=== PATIENT | male | born 1950 | race Caucasian/White ===

== ENCOUNTER 2017-03-23 17:44 | Observation (INO) ==
[2017-03-23] MEDS ORDERED: Acetaminophen 325 MG TABLET PO PRN (21:47)
[2017-03-23] MEDS ORDERED: Ondansetron 4 MG/2 ML VIAL IVP PRN (21:47)
[2017-03-23] MEDS ORDERED: Naloxone 0.4 MG/ML INJ IVP PRN (21:47)
[2017-03-23] MEDS ORDERED: *HR* Dextrose 50 % in Water (Syg) 50 ML SYRINGE IVP PRN (21:52)
[2017-03-23] MEDS ORDERED: D5% in Water 1,000 ML IVC PRN (21:52)
[2017-03-23] MEDS ORDERED: Dextrose Gel 15 GM PO PRN ×2 (21:52)
[2017-03-23] MEDS ORDERED: *HR* Warfarin 10 MG TABLET PO ONE (21:54)
--- NOTE | 2017-03-23 22:02 | Internal Med History&Physical ---
Date of Encounter: 03/23/17 Time of Encounter: 21:00 Assessment and Plan (1) Cerebrovascular accident Current visit: No Status: Acute History of CVA with residual right-sided weakness. New symptoms of right arm numbness with slurred speech. Happened 2 days ago. Improved now. - New infarct versus TIA - Keep patient nothing by mouth, IV fluid, speech therapy for swallow evaluation. - Place patient on continuous cardiac monitoring. - Check echo and duplex carotid. - MRI in a.m., neurology consult if MRI positive for acute infarct. - Patient is on Coumadin and atorvastatin now. Qualifiers: CVA mechanism: unspecified Qualified Code(s): I63.9 - Cerebral infarction, unspecified (2) Diabetes Current visit: Yes Status: Acute keep this patient on basal and sliding scale insulin Qualifiers: Diabetes mellitus type: type 2 Diabetes mellitus complication status: without complication Diabetes mellitus prison insulin use: with block engraver use Qualified Code(s): E11.9 - Type 2 diabetes mellitus without complications ; Z79.4 - manager plumbing (current) use of insulin (3) Hypertension Current visit: Yes Status: Acute BP is not high. Hold the by mouth medication because of nothing by mouth. Close monitor blood pressure. Qualifiers: Hypertension type: essential hypertension Qualified Code(s): I10 - Essential (primary) hypertension (4) A-fib Current visit: Yes Status: Acute On detoxing and the Cardizem for rate control. Heart rate is well controlled now. On Coumadin for anticoagulations, INR is therapeutic. Qualifiers: Atrial fibrillation type: chronic Qualified Code(s): I48.2 - Chronic atrial fibrillation (5) DVT prophylaxis Current visit: Yes Status: Acute Patient is on Coumadin Internal Medicine - H&P: HPI Chief complaint: Right arm numberness and slurred speech Admitted From: Home Plans for Post Hospital Care: Home History of present illness: Mr. Goodwin is a 67 year old male with history of A. fib, diabetes, hypertension , history of CVA presented to [place] the emergency room for right-sided arm numbness and slurred speech since Sunday (2 days ago). Patient denies headache, dizziness, shortness of breath, or chest pain. He said the numbness of arm and slurred speech has improved over 2 days. He had a CAT scan in [place] which shows an old infarct. Patient was admitted for further management. I discussed with patient regarding CODE STATUS. He is full code. Past Med Surg Social Fam HX - Past Medical History Medical history: atrial fibrillation, CVA, diabetes, hypertension Psychiatric history: no psych history - Social History Smoking Status: Never smoker Smokeless Tobacco Status: No Alcohol use: occasionally Drug use: none - Family History Mother Hx Family Cancer: Yes Internal Medicine - H&P: Meds Acetaminophen [Tylenol] 650 mg PO Q6HR PRN 08/18/16 [History] Atorvastatin Calcium [Lipitor] 40 mg PO DAILY 08/18/16 [History] Benazepril HCl 40 mg PO DAILY 08/18/16 [History] Digoxin [Lanoxin] 250 mcg PO DAILY 08/18/16 [History] Diltiazem HCl [Cardizem LA] 360 mg PO DAILY 08/18/16 [History] DiphenhydraMINE [Benadryl] 50 mg PO Q6HR 08/18/16 [History] GlipiZIDE [Glipizide] 10 mg PO DAILY 08/18/16 [History] Metformin HCl [Glucophage] 1,000 mg PO BID 08/18/16 [History] Tamsulosin [Flomax] 0.4 mg PO DAILY 08/18/16 [History] Warfarin [Coumadin] 10 mg PO 1800 08/18/16 [History] Insulin DETEMIR [Levemir] 90 unit SQ HS 03/23/17 [History] Allergies cigarette smoke Adverse Reaction (Verified 03/23/17 21:18) Difficulty Breathing All Systems PM: A 10-system review of systems was performed and is negative for pertinent findings except as documented above in the HPI. - Constitutional Vitals: Temp Pulse Resp BP Pulse Ox 97.7 F 81 16 154/87 94 03/23/17 20:54 03/23/17 20:54 03/23/17 20:54 03/23/17 20:54 03/23/17 20:54 General appearance: Present: A&O X 3, no acute distress, answers questions appropriately - Head Head exam: Present: atraumatic, normocephalic - Eye Eye exam: Present: PERRL, conjuntiva pink, sclera anicteric Pupils: Present: PERRL - Neck Neck exam general surgery: Present: supple, trachea midline. Absent: lymphadenopathy - Respiratory Respiratory exam: Present: CTAB. Absent: accessory muscle use, rales, rhonchi, wheezes - Cardiovascular Cardiovascular exam: Present: irregular rhythm, +S1, +S2. Absent: diastolic murmur, gallop, rubs, systolic murmur - GI/Abdominal GI/Abdominal exam: Present: normal bowel sounds, soft, no peritoneal signs. Absent: distended, tenderness - Extremities Exam Extremities exam: Present: warm, radial pulses palpable and symetrical. Absent : calf tenderness, cyanotic, pedal edema - Neurological Exam Neurological exam: Present: CN II-XII intact, motor sensory deficit (Right hand motor 5-), oriented X3, no focal deficits. Absent: pronater drift, facial droop , speech deficit - Skin Skin exam: Present: dry, intact
[2017-03-23] MEDS: Diltiazem CD (24hr) 180 MG CAPSULE PO SCH (23:00)
[2017-03-23] MEDS: Insulin DETEMIR 100 UNIT/ML X5UNITS SQ SCH (23:00)
[2017-03-23] MEDS: 0.9 % Sodium Chloride 1,000 ML IVC SCH (23:00)
[2017-03-24] MEDS: Insulin LISPRO 300 UNITS/3 ML VIAL SQ SCH ×5 (00:45→23:37)
[2017-03-24 06:08] LABS: Basophils % 0.5 %; Eosinophils # 0.2 K/mcL (0.0-0.6); Eosinophils % 2.9 %; Hematocrit 45.1 % (37.5-50.1); Hemoglobin 14.4 g/dL (12.9-16.9); Immature Granulocytes % 1.1 % (0-4); Lymphocytes # 2.2 K/mcL (0.6-4.6); Lymphocytes % 26.6 %; Mean Corpuscular HGB Conc 31.9 g/dL (31.6-35.5); Mean Corpuscular Hemoglobin 28.5 pg (28.0-33.3); Mean Corpuscular Volume 89.1 fL (83.0-100.0); Mean Platelet Volume 11.8 fL (9.4-12.4); Monocytes # 0.7 K/mcL (0.0-1.3); Monocytes % 8.5 %; Platelet Count 220 K/mcL (140-400); Red Blood Count 5.06 M/mcL (4.19-5.50); Red Cell Distribution Width 14.3 % (11.5-14.5); Segmented Neutrophils % 60.4 %
[2017-03-24 06:11] LABS: INR 2.6
[2017-03-24 06:28] LABS: BUN/Creatinine Ratio 15 (6-26); Blood Urea Nitrogen 14 mg/dL (8-26); Calcium 9.4 mg/dL (8.6-10.8); Carbon Dioxide 27 mEq/L (19-29); Chloride 104 mEq/L (98-109); Chol/HDL Ratio 5.9 (0-4.9); Cholesterol 182 mg/dL (< 200); Glucose 176 mg/dL (70-99); HDL Cholesterol 31 mg/dL (40-59); LDL Cholesterol,Calculated 87 mg/dL (0-99); Osmolality,Calculated 295 (280-300); Sodium 140 mEq/L (136-145); Triglycerides 322 mg/dL (< 150); eGFR For African Americans > 60 (> 60); eGFR For Non-African Americans > 60 (> 60)
[2017-03-24] MEDS: *HR* Digoxin 0.25 MG TABLET PO SCH (08:29)
[2017-03-24] MEDS: 0.9 % Sodium Chloride 1,000 ML IVC SCH ×2 (08:30→22:19)
[2017-03-24] MEDS ORDERED: *HR* Metoprolol 5 MG/5 ML VIAL IVP PRN (14:10)
[2017-03-24] MEDS: Lisinopril 20 MG TABLET PO SCH (15:34)
--- NOTE | 2017-03-24 17:17 | Internal Med Progress Note ---
Date of Encounter: 03/24/17 Time of Encounter: 15:30 - Assessment and plan (1) Cerebrovascular accident Current Visit: No Status: Ruled-out Assessment and plan: Acute CVA ruled out with a brain MRI was negative for acute processes and revealed his old CVA. Stroke education provided and importance of controlling glucoses and blood pressures covered with the patient. Patient hypertensive at this time, a dressing with by mouth medications as he is refusing IV. If ineffective, will insist upon an IV. Echocardiogram still pending. Carotid ultrasound with right sided nonstenotic plaque and left-sided moderate plaque. Follow-up outpatient. OT and speech therapy are recommended for outpatient therapy. He has no physical therapy needs. He has mild residual right-sided weakness from his prior CVA. Patient is quite verbose and at times has expressive aphasia but is able to find the correct word when given time and his speech is intelligible. We will observe overnight and gain better control over his blood pressure and likely discharge tomorrow pending clinical outcomes. ITS Impressions Brain MRI 03/24/17 21:55 IMPRESSION: 1. No acute infarct or acute intracranial process identified. 2. Remote posterior left MCA infarct. 3. Mild chronic small vessel ischemic changes. D/ / 03/24/2017 10:58:57 Alonso Colby MD / david Interpreting Provider: Alonso Colby MD 03/24/17 12:21 - Vascular Preliminary by Radha Cunningham [facility] Num: [id number] : 1950 Patient Age: 67 CAROTID DOPPLER PRELIMINARY REPORT NONSTENOTIC PLAQUE ONLY RIGHT CAROTID ARTERY 60-79% STENOSIS LEFT PROXIMAL ICA Qualifiers: CVA mechanism: unspecified Qualified Code(s): I63.9 - Cerebral infarction, unspecified (2) Diabetes Current Visit: Yes Status: Chronic Assessment and plan: Uncontrolled with a recent A1c of 9.3%. Continue sliding scale and education while admitted. Patient readily admits that his blood pressure and his glucoses "skyrocket" every time he eats fast food. Qualifiers: Diabetes mellitus type: type 2 Diabetes mellitus complication status: without complication Diabetes mellitus detention insulin use: with keno terminal operator use Qualified Code(s): E11.9 - Type 2 diabetes mellitus without complications ; Z79.4 - keno terminal operator (current) use of insulin (3) Hypertension Current Visit: Yes Status: Chronic Assessment and plan: Uncontrolled. Now that we have ruled out an acute CVA, his blood pressure has been brought down to 160s over 80s. YVROSE inhibitor from home continued with Lopressor IV as needed. Qualifiers: Hypertension type: essential hypertension Qualified Code(s): I10 - Essential (primary) hypertension (4) A-fib Current Visit: Yes Status: Chronic Assessment and plan: Rate controlled and therapeutic on Coumadin. INR 2.6 today. Qualifiers: Atrial fibrillation type: chronic Qualified Code(s): I48.2 - Chronic atrial fibrillation (5) DVT prophylaxis Current Visit: Yes Status: Acute Assessment and plan: Therapeutic on Coumadin - Subjective Interval history: Patient seen and examined. On examination, patient sitting upright on his couch. Patient alert and oriented 3 and denies pain at this time. He states his right upper arm is no longer numb. He states he feels better now that he has been able to eat. - Constitutional Vitals: Temp Pulse Resp BP Pulse Ox 98.2 F 79 16 169/84 93 03/24/17 15:28 03/24/17 15:28 03/24/17 15:28 03/24/17 15:28 03/24/17 15:28 General appearance: Present: A&O X 3, pleasant, no acute distress, answers questions appropriately - Head Head exam: Present: atraumatic, normocephalic - Eye Eye exam: Present: PERRL, conjuntiva pink, sclera anicteric Pupils: Present: PERRL - Neck Neck exam general surgery: Present: supple, trachea midline. Absent: lymphadenopathy - Respiratory Respiratory exam: Present: CTAB. Absent: accessory muscle use, rales, respiratory distress, rhonchi, wheezes - Cardiovascular Cardiovascular exam: Present: RRR, +S1, +S2. Absent: diastolic murmur, gallop, rubs, systolic murmur - GI/Abdominal GI/Abdominal exam: Present: normal bowel sounds, soft, no peritoneal signs. Absent: distended, tenderness - Extremities Exam Extremities exam: Present: warm, radial pulses palpable and symetrical. Absent : calf tenderness, cyanotic, pedal edema - Neurological Exam Neurological exam: Present: alert, CN II-XII intact, oriented X3, no focal deficits, strengths equal and symetr throughout, speech deficit (Chronic). Absent: pronater drift, facial droop - Expanded Neurological Exam Patient oriented to: Present: person, place, time Speech: Present: expressive aphasia (At times), fluid speech Neuro motor strength exam: LUE: 5, RUE: 5, LLE: 5, RLE: 5 Coma Scale Eye Opening: Spontaneous Coma Scale Motor Response: Obeys Commands Coma Scale Verbal Response: Oriented Coma Scale Total: 15 - Skin Skin exam: Present: dry, intact, normal color, warm Internal Medicine: Result - Labs CBC & Chem 7: 03/24/17 05:32 03/24/17 05:32 Labs: Short CBC 03/24/17 Range/Units 05:32 WBC 8.2 (4.3-11.1) K/mcL Hgb 14.4 (12.9-16.9) g/dL Hct 45.1 (37.5-50.1) % Plt Count 220 (140-400) K/mcL Neutrophils # 5.0 (1.6-8.9) K/mcL BMP 03/24/17 05:32 Sodium 140 Potassium 4.0 Chloride 104 Carbon Dioxide 27 BUN 14 Creatinine 0.93 Glucose 176 H Calcium 9.4 - ABG Interpretation ABG results: PT/INR, D-dimer PT 29.0 Seconds (9.4-12.1) H 03/24/17 05:32 - Impressions Impressions Brain MRI 03/24/17 21:55 IMPRESSION: 1. No acute infarct or acute intracranial process identified. 2. Remote posterior left MCA infarct. 3. Mild chronic small vessel ischemic changes. D/ / 03/24/2017 10:58:57 Alonso Colby MD / david Interpreting Provider: Alonso Colby MD Consult Discharge Plan - Plan Referrals: Sonia Sloan MD [Primary Care Provider] -
--- NOTE | 2017-03-24 17:43 | ECHO - Doppler Report ---
Echocardiogram Name: Aryan Goodwin Date of Study: 03/24/2017 Date: 1950 Ht: 64.0 in Medical Record#: [id number] Age: 67 Wt: 273.0 lb Gender: Male BSA: 2.23 Order #: [id number] Location: [facility] Room #: [id number] Reading Physician: Marybel Nguyen DO Well Puller Head: Brit Marmolejo RDCS Ordering Physician: Jack Benedict MD Primary Physician: None Indications: Cerebrovascular Accident Impressions: LVEF 60-65%. Normal left ventricular size and systolic function. Mild concentric hypertrophy of the left ventricle. Indeterminate left ventricular diastolic function Normal right ventricular size and function. Mild mitral regurgitation. Mild pulmonic regurgitation. No pulmonary hypertension. Saline bubble study could not be performed. Patient declined IV. Left Ventricular Wall Motion: Rest Echo Findings All wall segments showed normal motion. Findings: Study Quality * Technically sub-optimal due to body habitus. ECG Findings * Atrial fibrillation. Aorta * Not well visualized. Aortic Valve * No aortic regurgitation. * Trileaflet aortic valve. * Mildly calcified aortic valve leaflets. * No aortic stenosis. Mitral Valve * Normal mitral valve structure. * No mitral stenosis. * Mild mitral annular calcification * Mild mitral regurgitation. Tricuspid Valve * Tricuspid valve not well visualized. * Trace tricuspid regurgitation. Pulmonic Valve * Pulmonic valve is not well visualized. * No pulmonic stenosis. * Mild pulmonic regurgitation. Pulmonary Artery * Pulmonary artery not well visualized. Left Ventricle * Mild concentric left ventricular hypertrophy. * Basal septal hypertrophy. * Indeterminate diastolic function. * LVEF 60-65%. Right Atrium * Normal right atrial size. Left Atrium * Severely dilated left atrium. Interatrial Septum * No evidence of PFO by color Doppler. Right Ventricle * Normal right ventricular structure and function. Pericardium * There is no pericardial effusion present. IVC * The IVC is not well evaluated. History Hypertension Diabetes Hypercholesteremia Family History of CAD Measurements: BP: 152/ 69 2D Normal Values RVIDd: 3.60 cm <2.7 cm IVSd: 1.60 cm 0.6 - 1.0 cm LVIDd: 4.60 cm 3.7 - 5.6 cm LVPWd: 1.30 cm 0.6 - 1.1 cm LVIDs: 2.20 cm 1.5 - 3.6 cm AO: 3.20 cm < 4.0 cm LA: 4.80 cm 2.0 - 4.0cm %FS: 52.20 cm >25 % LVOT Diam: 2.10 cm LA volume: 91 Mitral Valve Peak E:1.53 m/sec Peak A:.32 m/sec E/A Ratio:4.8 Peak E' Lat Gerson:12.9 cm/s Peak E' Med Gerson:10.4 cm/s E/E' Lat Ratio:11.9 E/E' Med Ratio:14.7 Tricuspid Valve TV Regurg Peak Grad: 15.00mmHg TV Regurg Peak Gerson: 1.91m/sec Updated by Marybel Nguyen on 03/24/2017 5:35:45 PM electronically signed on 03/24/2017 5:37:00 PM with status of Final Wall Motion Sanchez: 1=Normal, 2=Hypokinesis, 3=Akinesis, 4=Dyskinesis, 5=Aneurysmal, 6=Hyperkinetic, X=Not Visualized (Blank)=Missing
[2017-03-24] MEDS ORDERED: *HR* Warfarin 10 MG TABLET PO ONE (18:00)
[2017-03-24] MEDS ORDERED: Warfarin perPT PO PRN (18:00)
[2017-03-24] MEDS: Diltiazem CD (24hr) 180 MG CAPSULE PO SCH (21:08)
[2017-03-24] MEDS: Insulin DETEMIR 100 UNIT/ML X5UNITS SQ SCH (21:09)
[2017-03-25 05:00] LABS: INR 3.8; Prothrombin Time 42.9 Seconds (9.4-12.1)
[2017-03-25] MEDS: Insulin LISPRO 300 UNITS/3 ML VIAL SQ SCH ×2 (05:52→12:29)
[2017-03-25] MEDS: Lisinopril 20 MG TABLET PO SCH (08:24)
[2017-03-25] MEDS: *HR* Digoxin 0.25 MG TABLET PO SCH (08:24)
[2017-03-25] MEDS: 0.9 % Sodium Chloride 1,000 ML IVC SCH (08:24)
[2017-03-25] MEDS ORDERED: amLODIPine 5 MG TABLET PO SCH (09:00)
--- NOTE | 2017-03-25 12:36 | Carotid Imaging Report ---
Carotid Duplex Patient Name:Aryan Goodwin Order Number:[id number] Procedure Date:03/24/2017 Date:8Age:67 yrs Gender:Male Rt.BP:152 / 69 mmHgHeart Rate: Location:[facility] Room #: [id number] Lbd Teacher:Annemarie Cunningham RVT Referring MD:Jack Benedict MD controller mechanic:None Reading MD:Wellington Ledesma MD Risk Factors Yes/No Hypertension Yes Diabetes Yes Anticoagulants Yes Hx of CVA Impressions: Findings: Left proximal ICA has a severe, 60-79% stenosis. Recommendations: Risk Factor Modification, Medical Therapy, and Follow up exam 12 months. Findings Carotid Duplex: Right: There is nonstenotic plaque in the right proximal common carotid artery. There is smooth heterogeneous plaque. There is nonstenotic plaque in the right mid common carotid artery. There is smooth heterogeneous plaque. There is nonstenotic plaque in the right distal common carotid artery. There is smooth heterogeneous plaque. There is nonstenotic plaque in the right bifurcation. There is smooth heterogeneous plaque. There is nonstenotic plaque in the right proximal internal carotid artery. There is smooth heterogeneous plaque. There is nonstenotic plaque in the right eca. There is smooth heterogeneous plaque. Left: There is nonstenotic plaque in the left mid common carotid artery. There is smooth heterogeneous plaque. There is nonstenotic plaque in the left distal common carotid artery. There is smooth heterogeneous plaque. There is nonstenotic plaque in the left bifurcation. There is smooth heterogeneous plaque. There is 60-79% stenosis in the left proximal internal carotid artery. There is smooth heterogeneous plaque. Carotid Results Right PSV EDV Assessment Proximal CCA 80 11 Non Stenotic Plaque Mid CCA 71 7 Non Stenotic Plaque Distal CCA 56 8 Non Stenotic Plaque Bifurcation 33 5 Non Stenotic Plaque Proximal ICA 52 11 Non Stenotic Plaque Mid ICA 86 18 Normal Distal ICA 83 20 Normal ECA 191 18 Non Stenotic Plaque Vertebral Artery 66 15 Antegrade Flow Left PSV EDV Assessment Proximal CCA 78 9 Normal Mid CCA 108 9 Non Stenotic Plaque Distal CCA 80 10 Non Stenotic Plaque Bifurcation 38 5 Non Stenotic Plaque Proximal ICA 253 39 60-79% stenosis Mid ICA 77 20 Normal Distal ICA 101 25 Normal ECA 174 8 Normal Vertebral Artery 41 7 Antegrade Flow Ratio's Right ICA/CCA Ratio: 1.21 ICA/CCA Values: 86/71 Left ICA/CCA Ratio: 2.34 ICA/CCA Values: 253/108 Updated by Wellington Ledesma MD on 03/25/2017 12:29:17 PM electronically signed on 03/25/2017 12:29:28 PM with status of Final
[2017-03-25] MEDS ORDERED: amLODIPine 5 MG TABLET PO ONE (13:23)
[2017-03-25 14:10] VITALS: BP 144/55
--- NOTE | 2017-03-25 14:16 | Discharge Summary ---
Date of Encounter: 03/25/17 Time of Encounter: 09:30 - Discharge Diagnosis (1) Cerebrovascular accident Priority: Primary Status: Ruled-out Comments: Acute CVA ruled out with a brain MRI was negative for acute processes and revealed his old CVA. Qualifiers: CVA mechanism: unspecified Qualified Code(s): I63.9 - Cerebral infarction, unspecified (2) TIA (transient ischemic attack) Priority: Primary Status: Suspected (3) Diabetes Priority: Secondary Status: Chronic Comments: Uncontrolled with a recent A1c of 9.3%. Attempted education while admitted. Patient readily admits that his blood pressure and his glucoses "skyrocket" every time he eats fast food. Follow-up outpatient. Qualifiers: Diabetes mellitus type: type 2 Diabetes mellitus complication status: without complication Diabetes mellitus senior care insulin use: with moth exterminator use Qualified Code(s): E11.9 - Type 2 diabetes mellitus without complications ; Z79.4 - manager intermediate (current) use of insulin (4) Hypertension Priority: Secondary Status: Chronic Comments: Uncontrolled so amlodipine was added to his regimen. He was normotensive at time of discharge. Recommend daily blood pressure checks at home and keep a log for primary care provider. Qualifiers: Hypertension type: essential hypertension Qualified Code(s): I10 - Essential (primary) hypertension (5) A-fib Priority: Secondary Status: Chronic Comments: Rate controlled. INR slightly supratherapeutic on day of discharge, recommended close outpatient follow-up Qualifiers: Atrial fibrillation type: chronic Qualified Code(s): I48.2 - Chronic atrial fibrillation (6) DVT prophylaxis Priority: Primary Status: Acute Comments: Slightly supratherapeutic on day of discharge, no signs of active bleeding, follow-up closely outpatient. - Discharge Medications Prescriptions: Amlodipine [Norvasc] 5 mg PO DAILY #30 tablet Home Medications: Acetaminophen [Tylenol] 650 mg PO Q6HR PRN 08/18/16 [History] Atorvastatin Calcium [Lipitor] 40 mg PO DAILY 08/18/16 [History] Benazepril HCl 40 mg PO DAILY 08/18/16 [History] Digoxin [Lanoxin] 250 mcg PO DAILY 08/18/16 [History] Diltiazem HCl [Cardizem LA] 360 mg PO DAILY 08/18/16 [History] DiphenhydraMINE [Benadryl] 50 mg PO Q6HR 08/18/16 [History] GlipiZIDE [Glipizide] 10 mg PO DAILY 08/18/16 [History] Metformin HCl [Glucophage] 1,000 mg PO BID 08/18/16 [History] Tamsulosin [Flomax] 0.4 mg PO DAILY 08/18/16 [History] Warfarin [Coumadin] 10 mg PO 1800 08/18/16 [History] Insulin DETEMIR [Levemir] 90 unit SQ HS 03/23/17 [History] Amlodipine [Norvasc] 5 mg PO DAILY #30 tablet 03/25/17 [Rx] Allergies/Adverse Reactions: Allergies cigarette smoke Adverse Reaction (Verified 03/23/17 21:18) Difficulty Breathing Procedures/tests Complete & Pending: Procedures Performed prior 72 hours Category Date Time Status MR head/brain wo con [MR] Routine MRI 03/24/17 21:55 Completed EV carotid duplex imaging BI Routine Y 03/23/17 21:56 Completed EV echocardiogram Routine Y 03/24/17 12:00 Completed Date of admission: 03/23/17 20:23 Primary care physician: Sonia Sloan, Consults: 03/23/17 21:50 Consult to Occupational Therapy [CONS] Routine Comment: Evaluate, develop and implement POC Reason for Consult: Stroke/TIA Consult to Physical Therapy [CONS] Routine Comment: Evaluate, develop and implement POC Reason for Consult: Stroke/TIA 03/23/17 21:51 Consult to Speech Therapy [CONS] Routine Comment: Evaluate, develop and implement POC Reason for Consult: Swallow evaluation Call Completed: No 03/23/17 22:43 Consult to Application Support Administrator [CONS] Routine Reason for SW Consult: Pt talks of having o2 concentrator at home, trying to "find used cpap or bipap" as well. Bought these things on his own. Discharging clinician: Jenni Guallpa Anticipated date of discharge: 03/25/17 - Patient Status Disposition: Home Health Service Condition: Fair Functional capacity at discharge: independent ambulation Overall status at discharge: patient is back to baseline - Discharge Instructions Follow Up With: Sonia Sloan MD [Primary Care Provider] - Additional Instructions: Follow-up with primary care provider within one to 2 weeks, check blood pressure daily - Diet and Activity Activity: increase activity as tolerated Diet: diabetic diet, low fat, low cholesterol, low salt diet Hospital course: Mr. Goodwin is a 67 year old male with past medical history of atrial fibrillation on Coumadin, diabetes, hypertension, prior CVA. He presented to [place] [facility] emergency department chief complaint of right sided arm numbness and slurred speech that started 2 days prior to presentation. Patient denied headache, dizziness, shortness of breath, or chest pain. He stated that the numbness of his arm and his slurred speech has improved over the 2 days prior to presentation. Workup in the emergency department unremarkable other than for hypertension. Patient was admitted to the hospitalist service for further evaluation and management. Brain MRI negative for acute processes and again reviewed his prior CVA to left MCA. Patient was educated several times during this admission regarding importance of controlling his glucoses which are uncontrolled with a recent A1c of 9.3%, as well as his blood pressures. Patient readily admits to dietary indiscretions causing his hypertension and hyperglycemia. Amlodipine was added to his regimen and his blood pressure became better controlled. Patient was admitted and observed over the course of 2 nights and his numbness and slurred speech had resolved. Echocardiogram unremarkable with ejection fraction of 60-65%. Patient was euvolemic on examination and denies shortness of breath throughout this admission. Carotid ultrasound revealing severe stenosis of 60-79% left [id number] outpatient. He was evaluated by physical therapy who surmised he had no needs. He was evaluated by occupational therapy and speech therapy with recommendation for home health services. He was discharged home in stable condition with close outpatient follow-up recommended. He was encouraged to check his blood pressure daily and keep a log and to check his glucoses more frequently. ITS Impressions Brain MRI 03/24/17 21:55 IMPRESSION: 1. No acute infarct or acute intracranial process identified. 2. Remote posterior left MCA infarct. 3. Mild chronic small vessel ischemic changes. D/ / 03/24/2017 10:58:57 Alonso Colby MD / david Interpreting Provider: Alonso Colby MD 03/24/17 12:21 - [facility] Num: [id number] : 1950 Patient Age: 67 CAROTID DOPPLER PRELIMINARY REPORT NONSTENOTIC PLAQUE ONLY RIGHT CAROTID ARTERY 60-79% STENOSIS LEFT PROXIMAL ICA Echocardiogram impressions: LVEF 60-65%. Normal left ventricle size and systolic function. Mild concentric hypertrophy of the left ventricle. Indeterminate left ventricular diastolic function. Normal right ventricular size and function. Mild mitral regurgitation. Mild pulmonic regurgitation. No pulmonary hypertension. Saline bubble study could not be performed as patient declined IV. - Time Spent with Patient Total time spent providing and/or coordinating discharge services: - Constitutional Vitals: Temp Pulse Resp BP Pulse Ox 97.5 F L 59 16 179/68 94 03/25/17 11:10 03/25/17 11:10 03/25/17 11:10 03/25/17 11:10 03/25/17 11:10 General appearance: Present: A&O X 3, pleasant, no acute distress, answers questions appropriately - Head Head exam: Present: atraumatic, normocephalic - Eye Eye exam: Present: PERRL, conjuntiva pink, sclera anicteric Pupils: Present: PERRL - Neck Neck exam general surgery: Present: supple, trachea midline. Absent: lymphadenopathy - Respiratory Respiratory exam: Present: CTAB. Absent: accessory muscle use, rales, respiratory distress, rhonchi, wheezes - Cardiovascular Cardiovascular exam: Present: RRR, +S1, +S2. Absent: diastolic murmur, gallop, rubs, systolic murmur - GI/Abdominal GI/Abdominal exam: Present: distended, normal bowel sounds, soft, no peritoneal signs. Absent: tenderness - Extremities Exam Extremities exam: Present: warm, radial pulses palpable and symetrical. Absent : calf tenderness, cyanotic, pedal edema - Neurological Exam Neurological exam: Present: alert, CN II-XII intact, oriented X3, no focal deficits, strengths equal and symetr throughout, speech deficit (mild exp aphasia at times- baseline). Absent: pronater drift, facial droop - Skin Skin exam: Present: dry, intact, normal color, warm
--- NOTE | 2017-03-25 14:43 | Physician Discharge Referral ---
Home Health/Hosp Referral Info Transfer to: Home Health Attending Provider: Hay Guallpa CNP Provider in Charge Post Discharge: PCP - Diagnosis (1) Cerebrovascular accident Priority: Primary Status: Ruled-out (2) TIA (transient ischemic attack) Priority: Primary Status: Suspected (3) Diabetes Priority: Secondary Status: Chronic (4) Hypertension Priority: Secondary Status: Chronic (5) A-fib Priority: Secondary Status: Chronic (6) DVT prophylaxis Priority: Primary Status: Acute - Respiratory Orders Smoking Cessation: Smoking cessation has been advised. For more information, call the [place] Tobacco Quit Line at 8-462-ZJOF-NOW. - Diet/Nutrition Diet/Nutrition Orders: No Added Salt (ALEXANDRO), No Concentrated Sweets - Activity Activity Orders: Ambulate - Services Needed Following services are medically necessary services: Nursing, Home Health Aide, Occupational Therapy, Speech Therapy - Transfer Medications Prescriptions: Amlodipine [Norvasc] 5 mg PO DAILY #30 tablet Home Medications: Acetaminophen [Tylenol] 650 mg PO Q6HR PRN 08/18/16 [History] Atorvastatin Calcium [Lipitor] 40 mg PO DAILY 08/18/16 [History] Benazepril HCl 40 mg PO DAILY 08/18/16 [History] Digoxin [Lanoxin] 250 mcg PO DAILY 08/18/16 [History] Diltiazem HCl [Cardizem LA] 360 mg PO DAILY 08/18/16 [History] DiphenhydraMINE [Benadryl] 50 mg PO Q6HR 08/18/16 [History] GlipiZIDE [Glipizide] 10 mg PO DAILY 08/18/16 [History] Metformin HCl [Glucophage] 1,000 mg PO BID 08/18/16 [History] Tamsulosin [Flomax] 0.4 mg PO DAILY 08/18/16 [History] Warfarin [Coumadin] 10 mg PO 1800 08/18/16 [History] Insulin DETEMIR [Levemir] 90 unit SQ HS 03/23/17 [History] Amlodipine [Norvasc] 5 mg PO DAILY #30 tablet 03/25/17 [Rx] Allergies/Adverse Reactions: Allergies cigarette smoke Adverse Reaction (Verified 03/23/17 21:18) Difficulty Breathing Certification: Further, I certify that my clinical findings support that this patient is homebound (i.e. absences from home require considerable and taxing effort and are for medical reasons or evangelical services or infrequently or short duration when for other reasons) because: Homebound Reason: Leaving home requires considerable and taxing effort due to condition, Altered mental status requiring supervision when leaving home (signs of early dementia; failed clock test) Attestation: My signature below is to certify that this patient is under my care and that I, or nurse practitioner, or a physician's assistant product manager working with me, has a face-to -face encounter with this patient.
[2017-03-25] MEDS ORDERED: Aminoglycoside Consult 1 EACH MC ONE (17:13)
== END 2017-03-25 17:14 | disposition home health service (06) ==
LOC: 3BNU
PROVIDERS: ADMIT Hospitalist; ATTEND Nurse Practitioner Family

== ENCOUNTER 2019-02-13 17:55 | Inpatient (IN) ==
[2019-02-13] MEDS ORDERED: Dextrose Gel 15 GM/37.5 ML TUBE PO PRN ×2 (23:03)
[2019-02-13] MEDS ORDERED: D5% in Water 1,000 ML IVC PRN (23:03)
[2019-02-13] MEDS ORDERED: *HR* Dextrose 50 % in Water (Syg) 50 ML SYRINGE IVP PRN (23:03)
--- NOTE | 2019-02-13 23:35 | Internal Med History&Physical ---
Date of Encounter: 02/13/19 Time of Encounter: 22:52 Internal Medicine - H&P: HPI Chief complaint: Shortness of breath and leg swelling History of present illness: Mr. Goodwin is a 68 year old male with a past medical history of atrial fibrillation, diabetes, hypertension, history of CVA who initially presented to [facility] for shortness of breath. Patient reports that he has been having exertional shortness of breath associated with lower extremity edema for the past 6 days. Patient has no prior history of congestive heart failure. Denies any chest pain. No reports of orthopnea or paroxysmal nocturnal dyspnea. Patient initially presented to his PCP office earlier today. Does report dry cough. Patient does not smoke. Patient is currently on 2 L nasal cannula at home at baseline. Has CPAP at night but reports that he is not always compliant. Patient noted to be hypertensive and hypoxemic on arrival at [place]. Placed on supplemental oxygen and given 80 mg of IV Lasix with good urine output. Chest x-ray showed pulmonary findings consistent with congestive heart failure. On my assessment patient stable from a respiratory standpoint currently requiring 4 L nasal cannula. He has considerable lower extremity edema noted on examination. Past Med Surg Social Fam HX - Past Medical History Medical history: atrial fibrillation, CVA, diabetes, hyperlipidemia, hypert ension Additional medical history: sleep apnea, carotid artery disease Psychiatric history: no psych history - Past Surgical History Additional surgical history: bilat carotid artery sx - Social History Smoking Status: Never smoker Smokeless Tobacco Status: No Alcohol use: occasionally Drug use: none - Family History Mother Hx Family Cancer: Yes Internal Medicine - H&P: Meds Acetaminophen [Tylenol] 650 mg PO Q6HR PRN 08/18/16 [History] Atorvastatin Calcium [Lipitor] 40 mg PO DAILY 08/18/16 [History] Benazepril HCl 40 mg PO DAILY 08/18/16 [History] Digoxin [Lanoxin] 250 mcg PO DAILY 08/18/16 [History] Diltiazem HCl [Cardizem LA] 360 mg PO DAILY 08/18/16 [History] DiphenhydraMINE [Benadryl] 25 mg PO Q6HR 08/18/16 [History] Metformin HCl [Glucophage] 1,000 mg PO BID 08/18/16 [History] Tamsulosin [Flomax] 0.4 mg PO DAILY 08/18/16 [History] Warfarin [Coumadin] 10 mg PO 1800 08/18/16 [History] glipiZIDE [Glipizide] 5 mg PO DAILY 08/18/16 [History] Insulin DETEMIR [Levemir] 90 unit SQ HS 03/23/17 [History] amLODIPine [Norvasc] 5 mg PO DAILY #30 tablet 03/25/17 [Rx] Tramadol HCl [Ultram] 50 mg PO BID PRN 02/13/19 [History] Allergy/AdvReac Type Severity Reaction Status Date / Time Penicillins [PCN] AdvReac Intermediate See Verified 02/14/19 02:12 Comments cigarette smoke AdvReac Difficulty Verified 03/23/17 21:18 Breathing All Systems PM: A 10-system review of systems was performed and is negative for pertinent findings except as documented above in the HPI. - Constitutional Constitutional: no chills, no fever(s), no night sweats - EENT Eyes: no change in vision, no discharge, no pain, no photophobia Ears: no ear discharge, no ear pain, no tinnitus Nose, mouth and throat: no dysphagia, no nasal discharge, no neck pain, no sore throat - Cardiovascular Cardiovascular ROS IM: no chest pain, no diaphoresis, no dyspnea, no lightheadedness, no palpitations, no syncope - Respiratory Respiratory: no cough, no dyspnea, no wheezing, no excessive phlegm production - Gastrointestinal Gastrointestinal: no abdominal pain, no diarrhea, no hematemesis, no hematoche haider, no melena, no nausea, no vomiting - Musculoskeletal Musculoskeletal ROS IM: no numbness, no tingling - Integumentary Integumentary IM: no rash, no unusual bruising - Neurological Neurological ROS: no confusion, no convulsions, no focal weakness, no numbness, no tingling, no tremor(s) - Hematologic/Lymphatic Hematologic/Lymphatic: no easy bruising - Constitutional Vitals: Temp Pulse Resp BP Pulse Ox 97.7 F 112 20 176/89 97 02/13/19 20:08 02/13/19 20:08 02/13/19 20:08 02/13/19 20:08 02/13/19 20:08 Exam: General: Alert and oriented 3 lying in bed in no acute distress Skin:Normal color, no rash, no lesions. HEENT:EOM, pupils equal, round and reactive. Cardiovascular:Normal S1 & S2, no rubs, murmurs or gallops. No JVD. Pulse regular. Lungs:Normal breath sounds, no wheezes or crackles. Abdomen:Soft, non-tender, no rigidity. Extremities: 3+ pitting edema up to the mid iverson Neurological:Normal cognition and motor skills. Pulses:Carotid and radial pulses normal +2. Rest of the physical exam is non contributory Internal Med - H&P Results - Labs CBC & Chem 7: 02/14/19 04:15 02/14/19 04:15 - Assessment and Plan (1) New onset of congestive heart failure Current Visit: Yes Status: Acute Assessment and plan: Patient presents with exertional dyspnea on the setting of significant lower extremity edema with x-ray findings consistent with congestive heart failure. Patient does not endorse any chest pain; low suspicion for ischemic etiology. Patient currently stable from a respiratory standpoint but still requiring 2 L above his baseline. Patient has responded to 80 mg of Lasix given at [facility]. Patient has a echocardiogram performed in March 2017 which showed an EF of 60-65% with normal left ventricular size and function. Mild concentric hypertrophy of the left ventricle. Troponin negative. -Strict I's and O's daily weights, fluid restriction -We will obtain an echocardiogram -We will start patient on Lasix 40 mg twice a day -Appreciate cardiology input (2) Dyspnea Current Visit: No Status: Acute Assessment and plan: Dyspnea likely secondary to CHF exacerbation. Currently stable from a respiratory standpoint. -Continue with supportive oxygen -See management for CHF above. Qualifiers: Dyspnea type: shortness of breath Qualified Code(s): R06.02 - Shortness of breath; R06.00 - Dyspnea, unspecified; R06.01 - Orthopnea (3) Hypertension Current Visit: No Status: Chronic Assessment and plan: Resume home antihypertensives. Qualifiers: Hypertension type: essential hypertension Qualified Code(s): I10 - Essential (primary) hypertension (4) Diabetes Current Visit: No Status: Chronic Assessment and plan: Sliding scale insulin. Diabetic diet. Qualifiers: Diabetes mellitus type: type 2 Diabetes mellitus oysterman insulin use: with oysterman use Diabetes mellitus complication status: without complication Qualified Code(s): E11.9 - Type 2 diabetes mellitus without complications; Z79.4 - prison (current) use of insulin (5) DVT prophylaxis Current Visit: No Status: Acute Assessment and plan: Subcutaneous heparin - Time Spent With Patient Total time spent is greater than 50% in coordination of care (as documented) at patient's floor/unit and/or counseling patient:
--- NOTE | 2019-02-14 02:08 | Event Note ---
Date of Encounter: 02/14/19 Time of Encounter: 01:02 Alerted by patient's nurse ROSCOE Sanchez the patient's heart rate dropped to 30s for 6 seconds. Heart rate has been running 80s to 90s and patient has history of A. fib. No signs or symptoms of distress noted. Nurse instructed to continue monitoring patient for a closely keep me updated of any adverse changes.
[2019-02-14 04:35] LABS: Basophils % 0.4 %; Eosinophils # 0.4 K/mcL (0.0-0.6); Eosinophils % 3.6 %; Hematocrit 39.1 % (37.5-50.1); Immature Granulocytes % 1.2 % (0-4); Lymphocytes # 1.5 K/mcL (0.6-4.6); Lymphocytes % 15.9 %; Mean Corpuscular HGB Conc 30.7 g/dL (31.6-35.5); Mean Corpuscular Hemoglobin 28.2 pg (28.0-33.3); Mean Platelet Volume 10.5 fL (9.4-12.4); Monocytes # 0.8 K/mcL (0.0-1.3); Monocytes % 8.4 %; Neutrophils # 6.8 K/mcL (1.6-8.9); Platelet Count 343 K/mcL (140-400); Red Blood Count 4.25 M/mcL (4.19-5.50); Red Cell Distribution Width 14.1 % (11.5-14.5); Segmented Neutrophils % 70.5 %
[2019-02-14 04:54] LABS: Alanine Aminotransferase 15 Units/L (7-52); Albumin 3.7 g/dL (3.5-5.7); Albumin/Globulin Ratio 1.1 (1.1-2.2); Alkaline Phosphatase 107 Units/L (34-104); Aspartate Amino Transferase 16 Units/L (13-39); BUN/Creatinine Ratio 15 (6-26); Bilirubin,Total 0.5 mg/dL (0.3-1.0); Blood Urea Nitrogen 13 mg/dL (8-23); Calcium 9.4 mg/dL (8.6-10.3); Carbon Dioxide 31 mEq/L (23-29); Chloride 100 mEq/L (98-107); Globulin 3.4 g/dL (2.4-3.5); Glucose 157 mg/dL (70-105); Magnesium 1.6 mg/dL (1.6-2.6); Osmolality,Calculated 291 (280-300); Potassium 4.5 mEq/L (3.5-5.1); Sodium 139 mEq/L (136-145); Total Protein 7.1 g/dL (6.4-8.9); Troponin I < 0.03 ng/mL (< 0.04); eGFR For Non-African Americans > 60 (> 60)
[2019-02-14 04:55] LABS: INR 2.4; Prothrombin Time 26.7 Seconds (9.4-12.1)
[2019-02-14 04:58] LABS: Activated Partial Thrombo Time 52.7 Seconds (26.0-36.0)
[2019-02-14] MEDS ORDERED: *HR* Heparin 5,000 UNIT/ML VIAL SQ SCH (06:00)
[2019-02-14] MEDS: Insulin LISPRO 300 UNITS/3 ML VIAL SQ SCH ×3 (07:35→17:56)
--- NOTE | 2019-02-14 09:18 | Internal Med Progress Note ---
<Suresh Oneill - Last Filed: 02/14/19 17:16> Hospitalist Progress Note - Encounter Date of Encounter: 02/14/19 - Exam Vitals: Temp Pulse Resp BP Pulse Ox 98.2 F 71 19 185/96 98 02/14/19 11:48 02/14/19 11:48 02/14/19 11:48 02/14/19 11:48 02/14/19 11:48 - Assessment and Plan (1) Diabetes Current Visit: No Status: Chronic (2) Hypertension Current Visit: No Status: Chronic (3) DVT prophylaxis Current Visit: No Status: Acute (4) Dyspnea Current Visit: No Status: Acute (5) New onset of congestive heart failure Current Visit: Yes Status: Acute - Time Spent with Patient Total time spent is greater than 50% in coordination of care (as documented) at patient's floor/unit and/or counseling patient: Internal Medicine: Result - Labs CBC & Chem 7: 02/14/19 04:15 02/14/19 04:15 Labs: Short CBC 02/14/19 Range/Units 04:15 WBC 9.6 (4.3-11.1) K/mcL Hgb 12.0 L D (12.9-16.9) g/dL Hct 39.1 (37.5-50.1) % Plt Count 343 (140-400) K/mcL Neutrophils # 6.8 (1.6-8.9) K/mcL BMP 02/14/19 04:15 Sodium 139 Potassium 4.5 Chloride 100 Carbon Dioxide 31 H BUN 13 Creatinine 0.86 Glucose 157 H Calcium 9.4 Cardiac Enzymes 02/14/19 Range/Units 04:15 Troponin I < 0.03 (< 0.04) ng/mL Liver Function 02/14/19 Range/Units 04:15 Total Bilirubin 0.5 (0.3-1.0) mg/dL AST 16 (13-39) Units/L ALT 15 (7-52) Units/L Alkaline Phosphatase 107 H (34-104) Units/L Albumin 3.7 (3.5-5.7) g/dL - ABG Interpretation ABG results: PT/INR, D-dimer PT 26.7 Seconds (9.4-12.1) H 02/14/19 04:15 - Impressions Impressions Chest CT 02/14/19 14:00 IMPRESSION: Multifocal pneumonia, with bilateral pleural effusions and bilateral lung consolidation. Small mediastinal nodes are seen, likely reactive D/ / Danny Tom MD / Danny Tom MD Interpreting Provider: Danny Tom MD Consult Discharge Plan - Plan Referrals: NONE,PCP [Primary Care Provider] - - Attending Attestation I examined this patient and my medical decision-making was reviewed with the Resident Physician on 02/14/19. I agree with the documented findings, disposition and treatment plan as described except to the extent set forth below. Mr Goodwin was admitted earlier today for acute exac CHF - new. Mr Goodwin feels about the same. No fever or chills at this time Exam alert Comfortable up in chair Heart not tachy Rales present Edema present Agree with assessment and plan as above and in H&P. <Esau Garcia - Last Filed: 02/14/19 19:42> Hospitalist Progress Note - Encounter Date of Encounter: 02/14/19 Time of Encounter: 09:00 - Exam Vitals: Temp Pulse Resp BP Pulse Ox 97.7 F 81 20 177/90 98 02/14/19 07:22 02/14/19 07:22 02/14/19 07:22 02/14/19 07:22 02/14/19 07:22 Exam: Gen.: Vitals noted. mild distress. Alert, awake and oriented * [address], [address], and time, well developed, sitting on the chair. Pleasant. HEENT: oropharynx clear, Normocephalic, atraumatic, MMM Neck: supple, no JVD, no lymphadenopathy, no carotid bruit. Cardiac: RRR, no murmur, +S1/S2, 3+ BLE edema, PMI non-displaced Pulmonary: CTA bilaterally, no wheezes, rales or rhonchi, equal chest expansion, unlabored breathing Abdomen: soft, nontender, BS noted, no guarding, non distended. No organomegaly, no pulsatile masses, Skin: warm and dry, no visible lesions. Feels warm, clammy, no rashes, no lesions, no erythema MSK: ROM not assessed. no joint swelling noted, gait not assessed while in bed. Non tender calf or clubbing, no cyanosis/clubbing/ or edema Neuro: A&O, moves all extremities, no focal deficits, sensation intact Psych: Appropriate mood and behavior, normal speech. - Assessment and Plan (1) New onset of congestive heart failure Current Visit: Yes Status: Acute Assessment and Plan: -likely due to HTN and uncontrolled obstructive sleep apnea - Endorses that he was feeling short of breath along with pedal edema for the past 6 days. -Most recent chest x-ray had concerns for some pulmonary vascular congestion. - BNP: 88, TSH: 0.526, Free T4: 0.97 - His last echocardiogram showed an LVEF of 60-65% with concerns for a mild left ventricular hypertrophy. - Was given 80 IV Lasix at the [facility] PLAN: -TTE pending - on 40 IV Lasix BID -Continue Digoxin, YVROSE inhibitor (home meds) for heart failure - Cardiology following - Strict Is/Os, cardiac diet (2) Dyspnea Current Visit: No Status: Acute Assessment and Plan: Likely multifactorial-due to CHF , multifocal pneumonia , b/l pleural effusion and non compliant on his CPAP. -Patient endorses that he had to use increase his home oxygen requirement from 2 L to 4 L. -Patient's chest CT showed multifocal pneumonia with bilateral pleural effusions and bilateral lung consolidation. -Endorses that he has been on short of breath along with pedal edema for the past 6 days. Plan: -Currently on 40 IV Lasix twice a day. -Currently of Rocephin and Zithromax with concerns for a CAP -Continue to monitor (3) A-fib Current Visit: No Status: Chronic Assessment and Plan: H/o afib on coumadin. Currently rate controlled. Avg HR 81. Noted to have afib with slow ventricular response during nocturnal hours. Min HR 27 bpm. No daytime bradycardia seen. Will lower dose of cardizem. Continue digoxin. Digoxin level 0.7. Recommend continuing coumadin. Goal INR 2.0-3.0. Recommend treatment of DONTA. - (4) Pneumonia Current Visit: Yes Status: Acute Assessment and Plan: - -Patient's most recent chest CT showed evidence for multifocal pneumonia along with bilateral pleural effusion and bilateral lung consolidation. - On physical exam, patient had decreased breath sounds - Currently on day 1 of Rocephin and azithromycin , on 4L NC satting at 98% (5) Diabetes Current Visit: No Status: Chronic Assessment and Plan: -Patient with a history of diabetes -Most recent glucose was 157. -Currently on the low-dose sliding scale insulin. (6) Hypertension Current Visit: No Status: Chronic Assessment and Plan: Patient has a history of hypertension.. Takes benzapril and Norvasc at home. -Blood pressure was 176/89 on admission. - Currently on his lisinopril 40mg . Also getting diuresed because of his leg edema and pleural effusion which should help with blood pressure control as well -We will adjust the dose of antihypertensives as needed (7) DVT prophylaxis Current Visit: No Status: Acute Assessment and Plan: Subcutaneous heparin - Time Spent with Patient Total time spent is greater than 50% in coordination of care (as documented) at patient's floor/unit and/or counseling patient: Internal Medicine: Result - Labs CBC & Chem 7: 02/14/19 04:15 02/14/19 04:15 Labs: Short CBC 02/14/19 Range/Units 04:15 WBC 9.6 (4.3-11.1) K/mcL Hgb 12.0 L D (12.9-16.9) g/dL Hct 39.1 (37.5-50.1) % Plt Count 343 (140-400) K/mcL Neutrophils # 6.8 (1.6-8.9) K/mcL BMP 02/14/19 04:15 Sodium 139 Potassium 4.5 Chloride 100 Carbon Dioxide 31 H BUN 13 Creatinine 0.86 Glucose 157 H Calcium 9.4 Cardiac Enzymes 02/14/19 Range/Units 04:15 Troponin I < 0.03 (< 0.04) ng/mL Liver Function 02/14/19 Range/Units 04:15 Total Bilirubin 0.5 (0.3-1.0) mg/dL AST 16 (13-39) Units/L ALT 15 (7-52) Units/L Alkaline Phosphatase 107 H (34-104) Units/L Albumin 3.7 (3.5-5.7) g/dL - ABG Interpretation ABG results: PT/INR, D-dimer PT 26.7 Seconds (9.4-12.1) H 02/14/19 04:15 <Suresh Oneill - Last Filed: 02/14/19 17:16> (1) Diabetes Qualifiers: Diabetes mellitus type: type 2 Diabetes mellitus supervisor intermediates insulin use: with mcc use Diabetes mellitus complication status: without complication Qualified Code(s): E11.9 - Type 2 diabetes mellitus without complications; Z79.4 - supervisor intermediates (current) use of insulin (2) Hypertension Qualifiers: Hypertension type: essential hypertension Qualified Code(s): I10 - Essential (primary) hypertension (4) Dyspnea Qualifiers: Dyspnea type: shortness of breath Qualified Code(s): R06.02 - Shortness of breath; R06.00 - Dyspnea, unspecified; R06.01 - Orthopnea <Esau Garcia - Last Filed: 02/14/19 19:42> (2) Dyspnea Qualifiers: Dyspnea type: shortness of breath Qualified Code(s): R06.02 - Shortness of breath; R06.00 - Dyspnea, unspecified; R06.01 - Orthopnea (3) A-fib Qualifiers: Atrial fibrillation type: chronic Qualified Code(s): I48.2 - Chronic atrial fibrillation (5) Diabetes Qualifiers: Diabetes mellitus type: type 2 Diabetes mellitus supervisor intermediates insulin use: with supervisor intermediates use Diabetes mellitus complication status: without complication Qualified Code(s): E11.9 - Type 2 diabetes mellitus without complications; Z79.4 - supervisor intermediates (current) use of insulin (6) Hypertension Qualifiers: Hypertension type: essential hypertension Qualified Code(s): I10 - Essential (primary) hypertension
--- NOTE | 2019-02-14 10:30 | Cardiology Consult Note ---
Addendum entered and electronically signed by Bora Ahuja CNP 02/14/19 11:40: Discussed with Dr. Vinson, we will also hold digoxin for low HR. Original Note: <Bora Ahuja - Last Filed: 02/14/19 10:24> Date of Encounter: 02/14/19 Time of Encounter: 10:24 Assessment and Plan (1) New onset of congestive heart failure Current Visit: Yes Status: Acute New onset CHF symptoms. 3+ pitting BLE edema noted. CXR shows CHF findings verses pneumonitis. BNP only 74. Known untreated DONTA. Last TTE 03/2017- LVEF 60-65%. Normal left ventricular size and systolic function. Mild concentric hypertrophy of the left ventricle. Indeterminate left ventricular diastolic function Normal right ventricular size and function. Mild mitral regurgitation. Mild pulmonic regurgitation. No pulmonary hypertension. Agree with TTE for further evaluation. Start IV lasix. Strict I&O and daily weights. Low sodium diet. (2) A-fib Current Visit: No Status: Chronic H/o afib on coumadin. Currently rate controlled. Avg HR 81. Noted to have afib with slow ventricular response during nocturnal hours. Min HR 27 bpm. No daytime bradycardia seen. Will lower dose of cardizem. Continue digoxin. Digoxin level 0.7. Recommend continuing coumadin. Goal INR 2.0-3.0. Recommend treatment of DONTA. Qualifiers: Atrial fibrillation type: chronic Qualified Code(s): I48.2 - Chronic atrial fibrillation Discussion w patient/family: The assessment and plan as outlined above was discussed with the patient and/or family members who expressed understanding and agreement. All questions were answered. Thank you for involving us in the care of your patient. Please call with any questions. History of Present Illness Consult date: 02/14/19 Requesting physician: Tony Cameron Consult reason: CHF Chief complaint: SOB. BLE edema for one week. History of present illness: Mr. Goodwin is a 68 year old male with past medical history of atrial fibrillation on coumadin, remote [place], CVA, HTN, HLD, DM type II, untreated DONTA. He presents with the c/o difficulty breathing and catching his breath last sunday. reports severe symptoms on-going for three hours before he calmed down. Since that time he noticed significant increase in BLE edema and dyspnea on exertion. He is using his PRN night time oxygen during the day. He states he is not using his prescribed C-pap at home. He denies chest pain. Denies orthopnea or PND. Cardiology consulted for acute CHF. Past Med Surg Social Fam HX - Past Medical History Medical history: atrial fibrillation, CVA, diabetes, hyperlipidemia, hypertension, myocardial infarction (Reports IA 10 years ago. Does not remember having LHC at that time. Denies cardiac stents. ) Additional medical history: sleep apnea, carotid artery disease Psychiatric history: no psych history - Past Surgical History Additional surgical history: bilat carotid artery sx - Social History Smoking Status: Never smoker Smokeless Tobacco Status: No Alcohol use: occasionally Drug use: none - Family History Mother Adopted: No Living Status: Age at : 94 Cause of : unknown Hx Family Cardiac Disorders: No Hx Family Respiratory Disorders: No Hx Family Cancer: Yes Hx Family GI Disorders: No Father Adopted: No Age at : 69 Cause of : heart attack Hx Family Cardiac Disorders: Yes Hx Family Cancer: No Medications and Allergies Acetaminophen [Tylenol] 650 mg PO Q6HR PRN 08/18/16 [History] Atorvastatin Calcium [Lipitor] 40 mg PO DAILY 08/18/16 [History] Benazepril HCl 40 mg PO DAILY 08/18/16 [History] Digoxin [Lanoxin] 250 mcg PO DAILY 08/18/16 [History] Diltiazem HCl [Cardizem LA] 360 mg PO DAILY 08/18/16 [History] DiphenhydraMINE [Benadryl] 25 mg PO Q6HR 08/18/16 [History] Metformin HCl [Glucophage] 1,000 mg PO BID 08/18/16 [History] Tamsulosin [Flomax] 0.4 mg PO DAILY 08/18/16 [History] Warfarin [Coumadin] 10 mg PO 1800 08/18/16 [History] glipiZIDE [Glipizide] 5 mg PO DAILY 08/18/16 [History] Insulin DETEMIR [Levemir] 90 unit SQ HS 03/23/17 [History] amLODIPine [Norvasc] 5 mg PO DAILY #30 tablet 03/25/17 [Rx] Tramadol HCl [Ultram] 50 mg PO BID PRN 02/13/19 [History] Allergy/AdvReac Type Severity Reaction Status Date / Time Penicillins [PCN] AdvReac Intermediate See Verified 02/14/19 02:12 Comments cigarette smoke AdvReac Difficulty Verified 03/23/17 21:18 Breathing All Systems Review: The remainder of the systems were reviewed and are negative Physical Examination Vital Signs, Last 4 Hours Temp Pulse Resp BP Pulse Ox 02/14/19 07:22 97.7 F 81 20 177/90 98 General: Conversant, No Apparent Distress HEENT: Atraumatic, Normocephaly, Mucus Membranes Moist Neck: Normal carotid pulses Cardiac: Reg Rate and Rhythm, Normal S1 and S2, No Murmur Lungs: Normal Breath Sounds, No Wheeze, Rales, Rhonchi Neuro: Alert and responsive, No focal deficits noted Abdomen: Soft, Non-Tender Skin: No rashes noted on visualized skin Musculoskeletal: No Chest Wall Tenderness Extremities: No Clubbing, No Cyanosis, Normal Pulses, Other (3+ edema up to mid thigh) Results 02/14/19 04:15 02/14/19 04:15 Lab Results 02/14/19 02/14/19 02/14/19 04:15 04:15 04:15 WBC 9.6 Hgb 12.0 L D Hct 39.1 Plt Count 343 INR 2.4 APTT 52.7 H Sodium 139 Potassium 4.5 Chloride 100 Carbon Dioxide 31 H BUN 13 Creatinine 0.86 Glucose 157 H Calcium 9.4 Magnesium 1.6 Total Bilirubin 0.5 AST 16 ALT 15 Alkaline Phosphatase 107 H Troponin I < 0.03 B-Natriuretic Peptide 02/14/19 04:15 WBC Hgb Hct Plt Count INR APTT Sodium Potassium Chloride Carbon Dioxide BUN Creatinine Glucose Calcium Magnesium Total Bilirubin AST ALT Alkaline Phosphatase Troponin I B-Natriuretic Peptide 88 - Imaging and Cardiology Echo: report reviewed - EKG Interpretation EKG results cardiology: personally reviewed Consult Discharge Plan - Plan Referrals: NONE,PCP [Primary Care Provider] - < A - Last Filed: 02/14/19 13:35> Date of Encounter: 02/14/19 - Attending Attestation I have personally performed a face to face evaluation on this patient. I have reviewed and agree with the documented findings and care plan as documented by the DIRECTOR [employer]. History and Exam by me shows: 68-year-old pleasant gentleman with history of CAD, DONTA, A. fib admitted for clinical features of CHF exacerbation AAOX3 in NAD at the bedside Hemodynamically stable Cardiopulmonary exam revealed S1, S2, grade 3/6 crescendo decrescendo ejection systolic murmur radiating to the carotids; bibasilar rales Bilateral pedal edema 3+ Rhythm reviewed - atrial fibrillation with SVR, no acute ST T changes Echo preserved EF, no significant valvular heart disease Impression/plan: Acute diastolic CHF exacerbation secondary to likely medication nonadherence and poor follow-up. I agree with diuresis. A. fib with slow ventricular response. Patient has preserved ejection fraction on recent echo. Digoxin not indicated at this time. History of CAD/ Aortic valve disorder. Continue aspirin, beta juarez, statin. Obtain echocardiogram to evaluate for aortic stenosis DONTA. Needs evaluation and treatment Castro, Lamont Vinson MD FAC Assessment and Plan Discussion w patient/family: The assessment and plan as outlined above was discussed with the patient and/or family members who expressed understanding and agreement. All questions were answered. Thank you for involving us in the care of your patient. Please call with any questions. History of Present Illness History of present illness: Mr. Goodwin is a 68 year old male All Systems Review: The remainder of the systems were reviewed and are negative Physical Examination Vital Signs, Last 4 Hours Temp Pulse Resp BP Pulse Ox 02/14/19 11:48 98.2 F 71 19 185/96 98 Results 02/14/19 04:15 02/14/19 04:15 Lab Results 02/14/19 02/14/19 02/14/19 04:15 04:15 04:15 WBC 9.6 Hgb 12.0 L D Hct 39.1 Plt Count 343 INR 2.4 APTT 52.7 H Sodium 139 Potassium 4.5 Chloride 100 Carbon Dioxide 31 H BUN 13 Creatinine 0.86 Glucose 157 H Calcium 9.4 Magnesium 1.6 Total Bilirubin 0.5 AST 16 ALT 15 Alkaline Phosphatase 107 H Troponin I < 0.03 B-Natriuretic Peptide TSH 02/14/19 02/14/19 04:15 11:39 WBC Hgb Hct Plt Count INR APTT Sodium Potassium Chloride Carbon Dioxide BUN Creatinine Glucose Calcium Magnesium Total Bilirubin AST ALT Alkaline Phosphatase Troponin I B-Natriuretic Peptide 88 TSH 0.526
[2019-02-14] MEDS ORDERED: Furosemide 20 MG/2 ML VIAL IVP SCH (11:00)
[2019-02-14] MEDS ORDERED: *HR* Digoxin 0.25 MG TABLET PO SCH (11:00)
[2019-02-14] MEDS: Diltiazem CD (24hr) 240 MG CAPSULE PO SCH (12:09)
[2019-02-14] MEDS: Lisinopril 20 MG TABLET PO SCH (12:09)
[2019-02-14] MEDS: Furosemide 40 MG/4 ML VIAL IVP SCH (17:57)
[2019-02-14] MEDS: Azithromycin 500 MG in D5% in Water 250 ML IVPB SCH (17:58)
[2019-02-14] MEDS ORDERED: *HR* Warfarin 7.5 MG TABLET PO ONE (18:00)
[2019-02-14] MEDS ORDERED: Warfarin perPT PO PRN (18:00)
[2019-02-14] MEDS ORDERED: *HR* Warfarin 10 MG TABLET PO SCH (18:00)
[2019-02-14] MEDS ORDERED: *HR* Warfarin 10 MG TABLET PO ONE (18:00)
[2019-02-14] MEDS: cefTRIAXone 1,000 MG in Water for inj. (sterile) 20 ML 10 ML IVP SCH (18:21)
[2019-02-15 02:08] LABS: Basophils % 0.4 %; Eosinophils # 0.4 K/mcL (0.0-0.6); Eosinophils % 4.2 %; Hematocrit 39.3 % (37.5-50.1); Immature Granulocytes % 1.4 % (0-4); Lymphocytes # 1.8 K/mcL (0.6-4.6); Lymphocytes % 18.4 %; Mean Corpuscular HGB Conc 30.5 g/dL (31.6-35.5); Mean Corpuscular Hemoglobin 28.3 pg (28.0-33.3); Mean Corpuscular Volume 92.7 fL (83.0-100.0); Mean Platelet Volume 10.6 fL (9.4-12.4); Monocytes # 0.9 K/mcL (0.0-1.3); Monocytes % 9.7 %; Neutrophils # 6.3 K/mcL (1.6-8.9); Platelet Count 344 K/mcL (140-400); Red Blood Count 4.24 M/mcL (4.19-5.50); Segmented Neutrophils % 65.9 %
[2019-02-15 02:24] LABS: BUN/Creatinine Ratio 21 (6-26); Blood Urea Nitrogen 20 mg/dL (8-23); Calcium 9.1 mg/dL (8.6-10.3); Carbon Dioxide 32 mEq/L (23-29); Chloride 97 mEq/L (98-107); Glucose 158 mg/dL (70-105); Osmolality,Calculated 292 (280-300); Potassium 4.1 mEq/L (3.5-5.1); Sodium 138 mEq/L (136-145); eGFR For Non-African Americans > 60 (> 60)
[2019-02-15 02:25] LABS: INR 1.7; Prothrombin Time 19.4 Seconds (9.4-12.1)
[2019-02-15] MEDS ORDERED: *HR* Digoxin 0.25 MG TABLET PO SCH (09:00)
--- NOTE | 2019-02-15 09:01 | Cardiology Progress Note ---
Date of Encounter: 02/15/19 Time of Encounter: 09:00 Assessment and Plan (1) New onset of congestive heart failure Current Visit: Yes Status: Acute New onset CHF symptoms--diastolic. 3+ pitting BLE edema noted. CXR shows CHF findings verses pneumonitis. BNP only 74. Chest CT multifocal PNA. Known untreated DONTA. TTE resulted--LVEF 65%. Mild cLVH. Indeterminate diastolic function. Normal RV structure and function. Moderate . Mild MR. Mild TR. No phtn. Started IV Lasix 40mg BID--cumulative I/O -4115mL. BLE persists. Continue IV diuresis until near euvolemic and transition to PO prior to d/c. Strict I&O and daily weights. Low sodium diet. Cardiology signing off. Reconsult PRN. Will coordinate outpt follow-up in 2-3 weeks. (2) A-fib Current Visit: No Status: Chronic H/o afib on coumadin. Currently rate controlled. Avg HR 74. Yesterday digoxin was stopped and cardizem was decreased due to afib with slow ventricular response during nocturnal hours. 12 hr tele AVG HR 74. Lowest HR seen during nocturnal hours overnight was 58. Recommend continuing coumadin. Goal INR 2.0-3.0. Recommend treatment of DONTA. Qualifiers: Atrial fibrillation type: chronic Qualified Code(s): I48.2 - Chronic atrial fibrillation Discussion w patient/family: The assessment and plan as outlined above was discussed with the patient and/or family members who expressed understanding and agreement. All questions were answered. Thank you for involving us in the care of your patient. Please call with any questions. I will discuss all the above with Dr. Nguyen and make changes as necessary. Subjective Principal diagnosis: diastolic CHF Interval history: BLE persists, unchanged. Objective Vital Signs, Last 4 Hours Temp Pulse Resp BP Pulse Ox 02/15/19 07:04 98.3 F 79 17 162/85 99 Vital Signs Temp Pulse Resp BP Pulse Ox 02/15/19 07:04 98.3 F 79 17 162/85 99 02/15/19 04:33 98.0 F 73 18 181/78 96 02/14/19 22:17 98.2 F 87 20 181/85 95 02/14/19 20:51 97 02/14/19 11:48 98.2 F 71 19 185/96 98 Intake and Output 02/14/19 02/15/19 02/15/19 23:59 07:59 15:59 Intake Total 720 / 720 240 / 240 Output Total 2325 / 2325 1125 / 1125 Balance -1605 / -1605 -885 / -885 Intake: IV Fluids 260 / 260 Rocephin 1,000 MG In Water for inj. (sterile) 10 ML @ 600 mls/ hr IVP DAILY [facility] Rx#:[id number] Zithromax 500 mg In Dextrose 5% 250 / 250 250 ML @ 252 mls/hr IVPB Q24H [facility] Rx#:[id number] Oral 460 / 460 240 / 240 Output: Urine 2325 / 2325 1125 / 1125 Other: Meal Dinner Percent of Meal Consumed 100% # Voids 0 Weight 136.5 kg Blood Glucose* 111 131 Patient Weight 02/15/19 23:59 Weight 136.5 kg General: Conversant, No Apparent Distress HEENT: Atraumatic, Normocephaly, Mucus Membranes Moist Neck: Normal carotid pulses Cardiac: Other (irregularly irregular, 2/6 murmur noted) Lungs: Other (diminished) Neuro: Alert and responsive, No focal deficits noted Abdomen: Soft, Non-Tender Skin: No rashes noted on visualized skin Musculoskeletal: No Chest Wall Tenderness Extremities: Other (3+ BLE edema) Results 02/15/19 01:33 02/15/19 01:33 Lab Results 02/14/19 02/15/19 02/15/19 11:39 01:33 01:33 WBC 9.6 Hgb 12.0 L Hct 39.3 Plt Count 344 INR 1.7 Sodium Potassium Chloride Carbon Dioxide BUN Creatinine Glucose Calcium TSH 0.526 02/15/19 01:33 WBC Hgb Hct Plt Count INR Sodium 138 Potassium 4.1 Chloride 97 L Carbon Dioxide 32 H BUN 20 Creatinine 0.97 Glucose 158 H Calcium 9.1 TSH Short CBC 02/15/19 Range/Units 01:33 WBC 9.6 (4.3-11.1) K/mcL Hgb 12.0 L (12.9-16.9) g/dL Hct 39.3 (37.5-50.1) % Plt Count 344 (140-400) K/mcL Neutrophils # 6.3 (1.6-8.9) K/mcL BMP 02/15/19 Range/Units 01:33 Sodium 138 (136-145) mEq/L Potassium 4.1 (3.5-5.1) mEq/L Chloride 97 L (98-107) mEq/L Carbon Dioxide 32 H (23-29) mEq/L BUN 20 (8-23) mg/dL Creatinine 0.97 (0.70-1.30) mg/dL Glucose 158 H (70-105) mg/dL Calcium 9.1 (8.6-10.3) mg/dL Impressions Echocardiogram 02/13/19 23:44 Impressions: LVEF 65%. Mild concentric left ventricular hypertrophy. Indeterminate diastolic function. Normal right ventricular structure and function. Moderate aortic stenosis. Mild mitral regurgitation. Mild tricuspid regurgitation. No pulmonary hypertension. Left Ventricular Wall Motion: Rest Echo Findings All wall segments showed normal motion. Findings: Study Quality * Technically adequate exam. ECG Findings * Atrial fibrillation. Left Ventricle * LVEF 65%. * Mild concentric left ventricular hypertrophy. * Indeterminate diastolic function. Right Ventricle * Normal right ventricular structure and function. Left Atrium * Severely dilated left atrium. Right Atrium * Mildly dilated right atrium. Aortic Valve * Aortic valve leaflet morphology not well visualized. * Moderate-severely calcified aortic valve leaflets. * Moderate aortic stenosis. Mitral Valve * Mitral valve not well visualized. * Mild mitral regurgitation. * No mitral stenosis. Tricuspid Valve * Tricuspid valve not well visualized. * Mild tricuspid regurgitation. * Estimated RA pressure is 8 mmHg. * Estimated RVSP is 28 mmHg. * No pulmonary hypertension. Pulmonic Valve * Pulmonic valve is not well visualized. * No pulmonic stenosis. * No pulmonic regurgitation. Pulmonary Artery * Pulmonary artery not well visualized. Aorta * Normally sized aortic root. * Proximal ascending thoracic aorta not well visualized. Pericardium * There is no pericardial effusion present. Interatrial Septum * No evidence of PFO by color Doppler. IVC * The IVC is dilated. * > 50% respiratory change Chest CT 02/14/19 14:00 IMPRESSION: Multifocal pneumonia, with bilateral pleural effusions and bilateral lung consolidation. Small mediastinal nodes are seen, likely reactive D/ / Danny Tom MD / Danny Tom MD Interpreting Provider: Danny Tom MD Active Medications Atorvastatin Calcium (Lipitor) 40 mg PO DAILY [facility] Stop: 08/17/19 09:01 Dextrose/Water (Dextrose 50% (Syg)) 25 ml IVP AD PRN PRN Reason: Hypoglycemia Stop: 08/15/19 23:04 Diltiazem HCl (Cardizem Cd) 240 mg PO DAILY [facility] Stop: 08/16/19 11:01 Last Admin: 02/14/19 12:09 Dose: 240 mg Furosemide (Lasix) 40 mg IVP BIDDIURETIC [facility] Stop: 08/16/19 17:01 Last Admin: 02/14/19 17:57 Dose: 40 mg Glucagon (Glucagen) 1 mg IM ONCE PRN PRN Reason: Hypoglycemia Stop: 08/15/19 23:04 Glucose (Gluctose) 15 gm PO ONCE PRN PRN Reason: Hypoglycemia Stop: 08/15/19 23:04 Glucose (Gluctose) 30 gm PO ONCE PRN PRN Reason: Hypoglycemia Stop: 08/15/19 23:04 Dextrose (Dextrose 5%) 1,000 mls @ 100 mls/hr IVC .Q10H PRN PRN Reason: HYPOGLYCEMIA Stop: 08/15/19 23:04 Azithromycin 500 mg/ Dextrose 250 mls @ 252 mls/hr IVPB Q24H [facility] Stop: 08/16/19 18:01 Last Infusion: 02/14/19 19:51 Dose: Infused Ceftriaxone Sodium 1,000 mg/ (Sterile Water) 10 mls @ 600 mls/hr IVP DAILY [facility] Stop: 08/16/19 18:01 Last Infusion: 02/14/19 19:50 Dose: Infused Insulin Human Lispro (Humalog) 0 units SQ TIDAC [facility]; Protocol Stop: 08/16/19 07:31 Last Admin: 02/14/19 17:56 Dose: 4 unit Lisinopril (Zestril) 40 mg PO DAILY [facility] Stop: 08/16/19 11:31 Last Admin: 02/14/19 12:09 Dose: 40 mg Warfarin Sodium (Coumadin Perpt) 0 each PO DAILY@1800 PRN PRN Reason: SEE COMMENTS Stop: 08/16/19 18:01 - Imaging and Cardiology Echo: report reviewed - EKG Interpretation EKG results cardiology: other (12 hr tele AVG HR 74, A-Fib) Consult Discharge Plan - Plan Referrals: NONE,PCP [Primary Care Provider] -
[2019-02-15] MEDS: Insulin LISPRO 300 UNITS/3 ML VIAL SQ SCH ×3 (10:35→16:50)
[2019-02-15] MEDS: Lisinopril 20 MG TABLET PO SCH (10:54)
[2019-02-15] MEDS: Diltiazem CD (24hr) 240 MG CAPSULE PO SCH (10:54)
[2019-02-15] MEDS: cefTRIAXone 1,000 MG in Water for inj. (sterile) 20 ML 10 ML IVP SCH (10:54)
[2019-02-15] MEDS: Furosemide 40 MG/4 ML VIAL IVP SCH ×2 (10:55→17:04)
[2019-02-15] MEDS: Azithromycin 500 MG in D5% in Water 250 ML IVPB SCH (17:04)
--- NOTE | 2019-02-15 17:23 | Internal Med Progress Note ---
Hospitalist Progress Note - Encounter Date of Encounter: 02/15/19 Time of Encounter: 13:00 - Subjective Interval History: Mr Goodwin is currently admitted for new onset diastolic heart failure. He remains moderate to high risk due to potential for worsening clinical status. Mr Goodwin is resting in bed. He is feeling OK. No fever or chills. Still very edematous. Breathing somewhat better. - Exam Vitals: Temp Pulse Resp BP Pulse Ox 98.3 F 77 14 162/79 97 02/15/19 16:00 02/15/19 16:00 02/15/19 16:00 02/15/19 16:00 02/15/19 16:00 Exam: General: Alert and oriented. Comfortable at this time. Lying flat in bed. Skin: Normal color, no rash, no lesions. H: Normocephalic. EENT: EOMI, Mucus membranes moist. No lesion. Cardiovascular: Normal S1 & S2, faint systolic murmur. Pulse irregular. Lungs: Decreased breath sounds bilaterally. Abdomen: Soft, non-tender, no rigidity. Normal bowel sounds. Extremities: No deformity,Significant edema bilateral lower extremities. Neurological: Normal cognition and motor skills. Pulses: Carotid and radial pulses normal +2. Rest of the physical exam is non contributory - Assessment and Plan (1) Respiratory failure Current Visit: Yes Status: Acute Assessment and Plan: Pt with hx chronic hypoxic resp failure. Requiring higher levels of oxygen at this time. Will wean back to home dose as able. (2) Diastolic heart failure Current Visit: Yes Status: Acute Assessment and Plan: Pt with new CHF - responding to diuresis. Monitor electrolytes and renal function. Continue IV Lasix for now. (3) Pneumonia Current Visit: Yes Status: Suspected Assessment and Plan: - -Patient's most recent chest CT showed evidence for multifocal pneumonia along with bilateral pleural effusion and bilateral lung consolidation. - Started on Rocephin and azithromycin. Continue supportive care. (4) Diabetes Current Visit: No Status: Chronic Assessment and Plan: -Patient with a history of diabetes -Currently on the low-dose sliding scale insulin. (5) Hypertension Current Visit: No Status: Chronic Assessment and Plan: Patient has a history of hypertension.. Takes benzapril and Norvasc at home. -Blood pressure was 176/89 on admission. - Currently on his lisinopril 40mg . -We will adjust the dose of antihypertensives as needed (6) A-fib Current Visit: No Status: Chronic Assessment and Plan: H/o afib on coumadin. Currently rate controlled. Noted to have afib with slow ventricular response during nocturnal hours. No daytime bradycardia seen. Will lower dose of cardizem. Recommend continuing coumadin. Goal INR 2.0-3.0. Recommend treatment of DONTA. Digoxin stopped due to bradycardia - (7) DVT prophylaxis Current Visit: No Status: Acute Assessment and Plan: Subcutaneous heparin - Time Spent with Patient Total time spent is greater than 50% in coordination of care (as documented) at patient's floor/unit and/or counseling patient: Internal Medicine: Result - Labs CBC & Chem 7: 02/15/19 01:33 02/15/19 01:33 Labs: Short CBC 02/15/19 Range/Units 01:33 WBC 9.6 (4.3-11.1) K/mcL Hgb 12.0 L (12.9-16.9) g/dL Hct 39.3 (37.5-50.1) % Plt Count 344 (140-400) K/mcL Neutrophils # 6.3 (1.6-8.9) K/mcL BMP 02/15/19 01:33 Sodium 138 Potassium 4.1 Chloride 97 L Carbon Dioxide 32 H BUN 20 Creatinine 0.97 Glucose 158 H Calcium 9.1 - ABG Interpretation ABG results: PT/INR, D-dimer PT 19.4 Seconds (9.4-12.1) H 02/15/19 01:33 - Impressions Impressions Echocardiogram 02/13/19 23:44 Impressions: LVEF 65%. Mild concentric left ventricular hypertrophy. Indeterminate diastolic function. Normal right ventricular structure and function. Moderate aortic stenosis. Mild mitral regurgitation. Mild tricuspid regurgitation. No pulmonary hypertension. Left Ventricular Wall Motion: Rest Echo Findings All wall segments showed normal motion. Findings: Study Quality * Technically adequate exam. ECG Findings * Atrial fibrillation. Left Ventricle * LVEF 65%. * Mild concentric left ventricular hypertrophy. * Indeterminate diastolic function. Right Ventricle * Normal right ventricular structure and function. Left Atrium * Severely dilated left atrium. Right Atrium * Mildly dilated right atrium. Aortic Valve * Aortic valve leaflet morphology not well visualized. * Moderate-severely calcified aortic valve leaflets. * Moderate aortic stenosis. Mitral Valve * Mitral valve not well visualized. * Mild mitral regurgitation. * No mitral stenosis. Tricuspid Valve * Tricuspid valve not well visualized. * Mild tricuspid regurgitation. * Estimated RA pressure is 8 mmHg. * Estimated RVSP is 28 mmHg. * No pulmonary hypertension. Pulmonic Valve * Pulmonic valve is not well visualized. * No pulmonic stenosis. * No pulmonic regurgitation. Pulmonary Artery * Pulmonary artery not well visualized. Aorta * Normally sized aortic root. * Proximal ascending thoracic aorta not well visualized. Pericardium * There is no pericardial effusion present. Interatrial Septum * No evidence of PFO by color Doppler. IVC * The IVC is dilated. * > 50% respiratory change Consult Discharge Plan - Plan Referrals: NONE,PCP [Primary Care Provider] - (1) Respiratory failure Qualifiers: Chronicity: acute on chronic Respiratory failure complication: hypoxia Qualified Code(s): J96.21 - Acute and chronic respiratory failure with hypoxia (2) Diastolic heart failure Qualifiers: Heart failure chronicity: acute on chronic Qualified Code(s): I50.33 - Acute on chronic diastolic (congestive) heart failure (3) Pneumonia Qualifiers: Pneumonia type: due to Pneumococcus Laterality: bilateral Lung location: lower lobe of lung Qualified Code(s): J13 - Pneumonia due to Streptococcus pneumoniae (4) Diabetes Qualifiers: Diabetes mellitus type: type 2 Diabetes mellitus assisted insulin use: with meterman use Diabetes mellitus complication status: without complication Qualified Code(s): E11.9 - Type 2 diabetes mellitus without complications; Z79.4 - middle or intermediate school principal (current) use of insulin (5) Hypertension Qualifiers: Hypertension type: essential hypertension Qualified Code(s): I10 - Essential (primary) hypertension (6) A-fib Qualifiers: Atrial fibrillation type: chronic Qualified Code(s): I48.2 - Chronic atrial fibrillation
[2019-02-15] MEDS ORDERED: *HR* Warfarin 10 MG TABLET PO ONE (18:00)
[2019-02-16 08:36] LABS: Hematocrit 38.4 % (37.5-50.1); Hemoglobin 11.7 g/dL (12.9-16.9); Mean Corpuscular HGB Conc 30.5 g/dL (31.6-35.5); Mean Corpuscular Hemoglobin 28.3 pg (28.0-33.3); Mean Platelet Volume 10.5 fL (9.4-12.4); Platelet Count 331 K/mcL (140-400); Red Blood Count 4.13 M/mcL (4.19-5.50); Red Cell Distribution Width 14.1 % (11.5-14.5)
[2019-02-16 08:38] LABS: BUN/Creatinine Ratio 27 (6-26); Blood Urea Nitrogen 23 mg/dL (8-23); Calcium 9.4 mg/dL (8.6-10.3); Carbon Dioxide 33 mEq/L (23-29); Chloride 100 mEq/L (98-107); Glucose 164 mg/dL (70-105); Magnesium 1.7 mg/dL (1.6-2.6); Osmolality,Calculated 293 (280-300); Potassium 3.9 mEq/L (3.5-5.1); Sodium 138 mEq/L (136-145); eGFR For Non-African Americans > 60 (> 60)
[2019-02-16 08:43] LABS: INR 1.5; Prothrombin Time 17.4 Seconds (9.4-12.1)
[2019-02-16] MEDS ORDERED: BENAZEPRIL HCL 40 MG PO SCH (09:00)
[2019-02-16] MEDS: cefTRIAXone 1,000 MG in Water for inj. (sterile) 20 ML 10 ML IVP SCH (09:49)
[2019-02-16] MEDS: Furosemide 40 MG/4 ML VIAL IVP SCH ×3 (09:49→16:30)
[2019-02-16] MEDS: Diltiazem CD (24hr) 240 MG CAPSULE PO SCH (09:49)
[2019-02-16] MEDS: Lisinopril 20 MG TABLET PO SCH (09:49)
[2019-02-16] MEDS: Insulin LISPRO 300 UNITS/3 ML VIAL SQ SCH ×3 (09:50→16:31)
--- NOTE | 2019-02-16 10:40 | Internal Med Progress Note ---
Hospitalist Progress Note - Encounter Date of Encounter: 02/16/19 Time of Encounter: 10:55 - Subjective Interval History: Mr Goodwin is currently admitted for resp failure and CHF exacerbation. He remains moderate to high risk due to potential for worsening clinical status. Mr Goodwin is up in chair. He is still on 4 liters oxygen. Continuing to diure se. Wants more to drink - mouth is dry. No fever or chills. No CP at this time. No GI issues. - Exam Vitals: Temp Pulse Resp BP Pulse Ox 98.2 F 83 15 170/83 94 02/16/19 07:58 02/16/19 07:58 02/16/19 07:58 02/16/19 07:58 02/16/19 07:58 Exam: General: Alert and oriented. Comfortable sitting up in chair. Skin: Normal color, no rash, no lesions. H: Normocephalic. EENT: EOMI, Mucus membranes moist. Cardiovascular: Normal S1 & S2, faint systolic murmur. Pulse irregular but not tachycardic. Lungs: Decreased breath sounds bilaterally. Faint rales in both bases. Abdomen: Soft, non-tender Normal bowel sounds. Extremities: No deformity. Edema persists in both lower extremities but seems to be a little better today. Neurological: Normal cognition and motor skills. Pulses: radial pulses normal +2. Rest of the physical exam is non contributory - Assessment and Plan (1) Respiratory failure Current Visit: Yes Status: Acute Assessment and Plan: Pt with hx chronic hypoxic resp failure. Requiring higher levels of oxygen at this time. Weaning back to baseline as able. (2) Diastolic heart failure Current Visit: Yes Status: Acute Assessment and Plan: Pt with new CHF - responding to diuresis. His renal function has remained normal. Will increase Lasix to TID. (3) Pneumonia Current Visit: Yes Status: Suspected Assessment and Plan: - -Patient's most recent chest CT showed evidence for multifocal pneumonia along with bilateral pleural effusion and bilateral lung consolidation. - Started on Rocephin and azithromycin. Overall tolerating meds. (4) Diabetes Current Visit: No Status: Chronic Assessment and Plan: -Patient with a history of diabetes -Currently on the low-dose sliding scale insulin. (5) Hypertension Current Visit: No Status: Chronic Assessment and Plan: Patient has a history of hypertension.. Takes benzapril and Norvasc at home. - Remains uncontrolled at this time Started on low dose Coreg this morning. (6) A-fib Current Visit: No Status: Chronic Assessment and Plan: H/o afib on coumadin. Currently rate controlled. Noted to have afib with slow ventricular response during nocturnal hours. No daytime bradycardia seen. Will lower dose of cardizem. Recommend continuing coumadin. Goal INR 2.0-3.0. Recommend treatment of DONTA. Digoxin stopped due to bradycardia Monitor heart rate on meds. - (7) DVT prophylaxis Current Visit: No Status: Acute Assessment and Plan: Subcutaneous heparin - Time Spent with Patient Total time spent is greater than 50% in coordination of care (as documented) at patient's floor/unit and/or counseling patient: Internal Medicine: Result - Labs CBC & Chem 7: 02/16/19 07:41 02/16/19 07:41 Labs: Short CBC 02/16/19 Range/Units 07:41 WBC 9.2 (4.3-11.1) K/mcL Hgb 11.7 L (12.9-16.9) g/dL Hct 38.4 (37.5-50.1) % Plt Count 331 (140-400) K/mcL BMP 02/16/19 07:41 Sodium 138 Potassium 3.9 Chloride 100 Carbon Dioxide 33 H BUN 23 Creatinine 0.86 Glucose 164 H Calcium 9.4 - ABG Interpretation ABG results: PT/INR, D-dimer PT 17.4 Seconds (9.4-12.1) H 02/16/19 07:41 Consult Discharge Plan - Plan Referrals: NONE,PCP [Primary Care Provider] - (1) Respiratory failure Qualifiers: Chronicity: acute on chronic Respiratory failure complication: hypoxia Qualified Code(s): J96.21 - Acute and chronic respiratory failure with hypoxia (2) Diastolic heart failure Qualifiers: Heart failure chronicity: acute on chronic Qualified Code(s): I50.33 - Acute on chronic diastolic (congestive) heart failure (3) Pneumonia Qualifiers: Pneumonia type: due to Pneumococcus Laterality: bilateral Lung location: lower lobe of lung Qualified Code(s): J13 - Pneumonia due to Streptococcus pneumoniae (4) Diabetes Qualifiers: Diabetes mellitus type: type 2 Diabetes mellitus manager long term care insulin use: with manager long term care use Diabetes mellitus complication status: without complication Qualified Code(s): E11.9 - Type 2 diabetes mellitus without complications; Z79.4 - termite control servicer (current) use of insulin (5) Hypertension Qualifiers: Hypertension type: essential hypertension Qualified Code(s): I10 - Essential (primary) hypertension (6) A-fib Qualifiers: Atrial fibrillation type: chronic Qualified Code(s): I48.2 - Chronic atrial fibrillation
[2019-02-16] MEDS: Azithromycin 500 MG in D5% in Water 250 ML IVPB SCH (16:30)
[2019-02-16] MEDS ORDERED: *HR* Warfarin 10 MG TABLET PO ONE (18:00)
[2019-02-17 06:36] LABS: Hematocrit 35.7 % (37.5-50.1); Mean Corpuscular HGB Conc 30.8 g/dL (31.6-35.5); Mean Corpuscular Hemoglobin 28.2 pg (28.0-33.3); Mean Corpuscular Volume 91.5 fL (83.0-100.0); Mean Platelet Volume 10.3 fL (9.4-12.4); Platelet Count 298 K/mcL (140-400); Red Cell Distribution Width 14.2 % (11.5-14.5)
[2019-02-17 06:45] LABS: INR 1.6; Prothrombin Time 17.9 Seconds (9.4-12.1)
[2019-02-17 06:55] LABS: BUN/Creatinine Ratio 33 (6-26); Blood Urea Nitrogen 29 mg/dL (8-23); Calcium 9.2 mg/dL (8.6-10.3); Carbon Dioxide 31 mEq/L (23-29); Chloride 100 mEq/L (98-107); Glucose 196 mg/dL (70-105); Magnesium 1.7 mg/dL (1.6-2.6); Osmolality,Calculated 299 (280-300); Sodium 139 mEq/L (136-145); eGFR For Non-African Americans > 60 (> 60)
[2019-02-17] MEDS: cefTRIAXone 1,000 MG in Water for inj. (sterile) 20 ML 10 ML IVP SCH (09:46)
[2019-02-17] MEDS: Furosemide 40 MG/4 ML VIAL IVP SCH ×3 (09:47→17:19)
[2019-02-17] MEDS: Lisinopril 20 MG TABLET PO SCH (09:48)
[2019-02-17] MEDS: Diltiazem CD (24hr) 240 MG CAPSULE PO SCH (09:49)
[2019-02-17] MEDS: Insulin LISPRO 300 UNITS/3 ML VIAL SQ SCH ×3 (09:49→17:19)
--- NOTE | 2019-02-17 14:11 | Internal Med Progress Note ---
<Suresh Oneill - Last Filed: 02/17/19 18:03> Hospitalist Progress Note - Encounter Date of Encounter: 02/17/19 - Exam Vitals: Temp Pulse Resp BP Pulse Ox 97.4 F L 67 12 141/63 96 02/17/19 07:06 02/17/19 15:26 02/17/19 15:26 02/17/19 15:26 02/17/19 15:26 - Assessment and Plan (1) Diabetes Current Visit: No Status: Chronic (2) Hypertension Current Visit: No Status: Chronic (3) A-fib Current Visit: No Status: Chronic (4) DVT prophylaxis Current Visit: No Status: Acute (5) Pneumonia Current Visit: Yes Status: Suspected (6) Diastolic heart failure Current Visit: Yes Status: Acute (7) Respiratory failure Current Visit: Yes Status: Acute - Time Spent with Patient Total time spent is greater than 50% in coordination of care (as documented) at patient's floor/unit and/or counseling patient: Internal Medicine: Result - Labs CBC & Chem 7: 02/17/19 06:26 02/17/19 06:26 Labs: Short CBC 02/17/19 Range/Units 06:26 WBC 9.0 (4.3-11.1) K/mcL Hgb 11.0 L (12.9-16.9) g/dL Hct 35.7 L (37.5-50.1) % Plt Count 298 (140-400) K/mcL BMP 02/17/19 06:26 Sodium 139 Potassium 4.0 Chloride 100 Carbon Dioxide 31 H BUN 29 H Creatinine 0.89 Glucose 196 H Calcium 9.2 - ABG Interpretation ABG results: PT/INR, D-dimer PT 17.9 Seconds (9.4-12.1) H 02/17/19 06:26 Consult Discharge Plan - Plan Referrals: NONE,PCP [Primary Care Provider] - - Attending Attestation I examined this patient and my medical decision-making was reviewed with the Resident Physician on 02/17/19. I agree with the documented findings, disposition and treatment plan as described except to the extent set forth below. Mr Jhaveri is currently admitted for acute exac systolic heart failure. He remains moderate to high risk due to potential for worsening clinical status. Mr Jhaveri is up in the chair. He continues to diurese. Wants more to drink. No CP. Still on 4 liters oxygen. Exam alert Comfortable Mucus memrbranes dry Heart irreg - not tachy No wheeze abd soft Edema persists - slowly improving. I/P 1. Resp failure - continue to wean as able 2. CHF - continue diuresis 3. Chronic a fib Further diagnoses and plan as above. <sEau Garcia - Last Filed: 02/17/19 20:48> Hospitalist Progress Note - Encounter Date of Encounter: 02/17/19 Time of Encounter: 09:15 - Subjective Interval History: Mr. Jhaveri seems to be doing clinically well today as compared to when he was admitted. He endorses no acute distress continues to be on Lasix 40 mg IV 3 times a day for aggressive diuresis to help with his pulmonary pedal edema. Patient currently on 4 L of flow simple mask satting at 99% (of note he uses 2 L of oxygen at home during days and is on by CPAP at night) patient endorses that his mouth feels dry all the time and is requesting more fluid intake. I tried to explain to him that given his recent diagnosis of CHF, patient is on fluid restriction to not more than 1.5 L a day. Patient endorses understanding of the situation. Denies any chest pain, or palpitations. - Exam Vitals: Temp Pulse Resp BP Pulse Ox 97.4 F L 72 20 162/69 99 02/17/19 07:06 02/17/19 07:06 02/17/19 07:06 02/17/19 07:06 02/17/19 07:06 Exam: Gen.: Vitals noted. mild distress. Alert, awake and oriented * 3 to person, place, and time, well developed, sitting on the chair. Pleasant. HEENT: oropharynx clear, Normocephalic, atraumatic, MMM Neck: supple, no JVD, no lymphadenopathy, no carotid bruit. Cardiac: irregular -irregular rhythm rate controlled, no murmur, +S1/S2, 3+ BLE edema, PMI non-displaced Pulmonary: CTA bilaterally, no wheezes, rales or rhonchi, equal chest expansion, unlabored breathing Abdomen: soft, nontender, BS noted, no guarding, non distended. No organomegaly, no pulsatile masses, Skin: warm and dry, no visible lesions. Feels warm, clammy, no rashes, no lesions, no erythema MSK: ROM not assessed. no joint swelling noted, gait not assessed while in bed. Non tender calf or clubbing, 2+ pedal edema Neuro: A&O, moves all extremities, no focal deficits, sensation intact Psych: Appropriate mood and behavior, normal speech. - Assessment and Plan (1) Respiratory failure Current Visit: Yes Status: Acute Assessment and Plan: -Likely multifactorial due to new-onset diastolic dysfunction along with the multifocal pneumonia -Patient's chest CT showed evidence for multifocal pneumonia along with bilateral pleural effusion and bilateral lung consolidation. -Recent echocardiogram showed LVEF 55% with indeterminate diastolic dysfunction -Currently on 4 L of oxygen satting at 99%, Continues to be on day 4 of antibiotics., 40 IV Lasix TID -Patient to seems to be clinically improving then the day he was admitted. However still not ready to be discharged home. Plan: - Will ambulate patient tomorrow in the a.m. to reassess his oxygen requirements prior to discharge . (2) Pneumonia Current Visit: Yes Status: Suspected Assessment and Plan: -Patient's most recent chest CT showed evidence for multifocal pneumonia along with bilateral pleural effusion and bilateral lung consolidation. - On physical exam, patient had decreased breath sounds - Currently on day 4 of Rocephin and azithromycin , on 4L NC satting at 98% (3) Diastolic heart failure Current Visit: Yes Status: Acute Assessment and Plan: -likely due to HTN and uncontrolled obstructive sleep apnea - Endorses that he was feeling short of breath along with pedal edema for the past 6 days. -Most recent chest x-ray had concerns for some pulmonary vascular congestion. - BNP: 88, TSH: 0.526, Free T4: 0.97 - Recent echocardiogram showed an LVEF of 65% with indeterminate diastolic dysfunction. - Was given 80 IV Lasix at the [facility] -Currently on 40 IV Lasix TID, continued his digoxin as patient had episodes of mild bradycardia PLAN: - Patient not clinically ready to go home today. He is still requiring 4 L of oxygen and is on Lasix IV 3 times a day. His breath sounds are improving with every progressing day but he still has significant amount of pedal edema. Patient will undergo a 6 walk test to estimate hos oxygen requirements. - Strict Is/Os, cardiac diet -Follow-up with cardiology as an outpatient on discharge (4) Diabetes Current Visit: No Status: Chronic Assessment and Plan: -Patient with a history of diabetes -Currently on the low-dose sliding scale insulin. (5) Hypertension Current Visit: No Status: Chronic Assessment and Plan: - Patient has a history of hypertension. -He is on lisinopril 40 mg once a day. During his hospital stay, but we are holding his Norvasc because of his pedal edema. -On day 2 of Coreg to help with his diastolic dysfunction and BP control - We will adjust his antihypertensives as needed. (6) A-fib Current Visit: No Status: Chronic Assessment and Plan: H/o afib on coumadin. Currently rate controlled with HR:72 Noted to have afib with slow ventricular response during nocturnal hours. No daytime bradycardia seen. Currently on lower dose of cardizem. Digoxin was stopped due to bradycardia , day 2 of 3.125 mg Coreg. continuing coumadin. Goal INR 2.0-3.0. Recommend treatment of DONTA as outpatient. - (7) DVT prophylaxis Current Visit: No Status: Acute Assessment and Plan: Subcutaneous heparin - Time Spent with Patient Total time spent is greater than 50% in coordination of care (as documented) at patient's floor/unit and/or counseling patient: Internal Medicine: Result - Labs CBC & Chem 7: 02/17/19 06:26 02/17/19 06:26 Labs: Short CBC 02/17/19 Range/Units 06:26 WBC 9.0 (4.3-11.1) K/mcL Hgb 11.0 L (12.9-16.9) g/dL Hct 35.7 L (37.5-50.1) % Plt Count 298 (140-400) K/mcL [facility] 02/17/19 06:26 Sodium 139 Potassium 4.0 Chloride 100 Carbon Dioxide 31 H BUN 29 H Creatinine 0.89 Glucose 196 H Calcium 9.2 - ABG Interpretation ABG results: PT/INR, D-dimer PT 17.9 Seconds (9.4-12.1) H 02/17/19 06:26 <Suresh Oneill - Last Filed: 02/17/19 18:03> (1) Diabetes Qualifiers: Diabetes mellitus type: type 2 Diabetes mellitus joint terminal attack controller insulin use: with joint terminal attack controller use Diabetes mellitus complication status: without complication Qualified Code(s): E11.9 - Type 2 diabetes mellitus without complications; Z79.4 - skilled nursing (current) use of insulin (2) Hypertension Qualifiers: Hypertension type: essential hypertension Qualified Code(s): I10 - Essential (primary) hypertension (3) A-fib Qualifiers: Atrial fibrillation type: chronic Qualified Code(s): I48.2 - Chronic atrial fibrillation (5) Pneumonia Qualifiers: Pneumonia type: due to Pneumococcus Laterality: bilateral Lung location: lower lobe of lung Qualified Code(s): J13 - Pneumonia due to Streptococcus pneumoniae (6) Diastolic heart failure Qualifiers: Heart failure chronicity: acute on chronic Qualified Code(s): I50.33 - Acute on chronic diastolic (congestive) heart failure (7) Respiratory failure Qualifiers: Chronicity: acute on chronic Respiratory failure complication: hypoxia Qualified Code(s): J96.21 - Acute and chronic respiratory failure with hypoxia <Esau Garcia - Last Filed: 02/17/19 20:48> (1) Respiratory failure Qualifiers: Chronicity: acute on chronic Respiratory failure complication: hypoxia Qualified Code(s): J96.21 - Acute and chronic respiratory failure with hypoxia (2) Pneumonia Qualifiers: Pneumonia type: due to Pneumococcus Laterality: bilateral Lung location: lower lobe of lung Qualified Code(s): J13 - Pneumonia due to Streptococcus pneumoniae (3) Diastolic heart failure Qualifiers: Heart failure chronicity: acute on chronic Qualified Code(s): I50.33 - Acute on chronic diastolic (congestive) heart failure (4) Diabetes Qualifiers: Diabetes mellitus type: type 2 Diabetes mellitus nursing home insulin use: with joint terminal attack controller use Diabetes mellitus complication status: without complication Qualified Code(s): E11.9 - Type 2 diabetes mellitus without complications; Z79.4 - skilled nursing (current) use of insulin (5) Hypertension Qualifiers: Hypertension type: essential hypertension Qualified Code(s): I10 - Essential (primary) hypertension (6) A-fib Qualifiers: Atrial fibrillation type: chronic Qualified Code(s): I48.2 - Chronic atrial fibrillation
[2019-02-17] MEDS: Azithromycin 250 MG TABLET PO SCH (17:20)
[2019-02-17] MEDS ORDERED: *HR* Warfarin 10 MG TABLET PO ONE (18:00)
[2019-02-18 06:26] LABS: Basophils # 0.1 K/mcL (0.0-0.2); Basophils % 0.6 %; Eosinophils # 0.4 K/mcL (0.0-0.6); Eosinophils % 4.1 %; Hematocrit 35.7 % (37.5-50.1); Hemoglobin 11.2 g/dL (12.9-16.9); Lymphocytes # 1.4 K/mcL (0.6-4.6); Lymphocytes % 16.4 %; Mean Corpuscular HGB Conc 31.4 g/dL (31.6-35.5); Mean Corpuscular Hemoglobin 28.4 pg (28.0-33.3); Mean Corpuscular Volume 90.4 fL (83.0-100.0); Mean Platelet Volume 10.6 fL (9.4-12.4); Monocytes # 0.8 K/mcL (0.0-1.3); Monocytes % 9.2 %; Platelet Count 299 K/mcL (140-400); Red Blood Count 3.95 M/mcL (4.19-5.50); Segmented Neutrophils % 68.7 %
[2019-02-18 06:37] LABS: INR 1.7
[2019-02-18 06:48] LABS: BUN/Creatinine Ratio 30 (6-26); Blood Urea Nitrogen 26 mg/dL (8-23); Calcium 9.1 mg/dL (8.6-10.3); Carbon Dioxide 33 mEq/L (23-29); Chloride 100 mEq/L (98-107); Glucose 209 mg/dL (70-105); Osmolality,Calculated 301 (280-300); Sodium 140 mEq/L (136-145); eGFR For Non-African Americans > 60 (> 60)
[2019-02-18] MEDS: Lisinopril 20 MG TABLET PO SCH (10:03)
[2019-02-18] MEDS: Furosemide 40 MG/4 ML VIAL IVP SCH ×4 (10:03→17:44)
[2019-02-18] MEDS: Diltiazem CD (24hr) 240 MG CAPSULE PO SCH (10:03)
[2019-02-18] MEDS: cefTRIAXone 1,000 MG in Water for inj. (sterile) 20 ML 10 ML IVP SCH (10:04)
[2019-02-18] MEDS: Insulin LISPRO 300 UNITS/3 ML VIAL SQ SCH ×3 (10:04→17:43)
--- NOTE | 2019-02-18 12:03 | Internal Med Progress Note ---
<Suresh Oneill - Last Filed: 02/18/19 16:54> Hospitalist Progress Note - Encounter Date of Encounter: 02/18/19 - Exam Vitals: Temp Pulse Resp BP Pulse Ox 98.1 F 74 17 113/61 98 02/18/19 16:50 02/18/19 16:50 02/18/19 16:50 02/18/19 16:50 02/18/19 16:50 - Assessment and Plan (1) Diabetes Current Visit: No Status: Chronic (2) Hypertension Current Visit: No Status: Chronic (3) A-fib Current Visit: No Status: Chronic (4) DVT prophylaxis Current Visit: No Status: Acute (5) Pneumonia Current Visit: Yes Status: Suspected (6) Diastolic heart failure Current Visit: Yes Status: Acute (7) Respiratory failure Current Visit: Yes Status: Acute - Time Spent with Patient Total time spent is greater than 50% in coordination of care (as documented) at patient's floor/unit and/or counseling patient: Internal Medicine: Result - Labs CBC & Chem 7: 02/18/19 05:57 02/18/19 05:57 Labs: Short CBC 02/18/19 Range/Units 05:57 WBC 8.7 (4.3-11.1) K/mcL Hgb 11.2 L (12.9-16.9) g/dL Hct 35.7 L (37.5-50.1) % Plt Count 299 (140-400) K/mcL Neutrophils # 6.0 (1.6-8.9) K/mcL BMP 02/18/19 05:57 Sodium 140 Potassium 4.0 Chloride 100 Carbon Dioxide 33 H BUN 26 H Creatinine 0.88 Glucose 209 H Calcium 9.1 - ABG Interpretation ABG results: PT/INR, D-dimer PT 19.0 Seconds (9.4-12.1) H 02/18/19 05:57 Consult Discharge Plan - Plan Referrals: NONE,PCP [Primary Care Provider] - - Attending Attestation I examined this patient and my medical decision-making was reviewed with the Resident Physician on 02/18/19. I agree with the documented findings, disposition and treatment plan as described except to the extent set forth below. Mr Goodwin is currently admitted for acute systolic heart failure. He remains moderate to high risk due to potential for worsening clinical status. Mr Goodwin is feeling OK. He is still diuresing some. No CP. Breathing a little better. No fever or chills. Exam alert Comfortable Mucus membranes dry Heart not tachy. Irreg No wheeze. Breath sounds decreased Abd soft and nontender Still with edema though seems somewhat better Moves all extremities I/P 1. Acute resp failure - weaning as able. On 2 liters at home 2. CHF exacerbation- continue diuresis today 3. DM - continue sliding scale 4. HTN 5. Chronic a fib Further diagnoses and plan as above. <Esau Garcia - Last Filed: 02/18/19 20:46> Hospitalist Progress Note - Encounter Date of Encounter: 02/18/19 Time of Encounter: 08:30 - Subjective Interval History: Patient continues to be clinically improving every single day with the current oxygen requirements at 2 L. Denies no acute distress today, his pedal edema is +2, lung sounds are better than yesterday. Patient underwent a 6 minute walk test today and was requiring 2 L of oxygen to keep his SPO2 around 92%. With his clinical condition improving I have D escalated his Lasix requirement from a 40 IV TID to BID we will reassess him in the a.m. His kidney function looks good. - Exam Vitals: Temp Pulse Resp BP Pulse Ox 97.9 F 72 18 170/71 95 02/18/19 07:36 02/18/19 07:36 02/18/19 07:36 02/18/19 07:36 02/18/19 07:36 Exam: Gen.: Vitals noted. mild distress. Alert, awake and oriented * 3 to person, place, and time, well developed, sitting on the chair. Pleasant. HEENT: oropharynx clear, Normocephalic, atraumatic, MMM Neck: supple, no JVD, no lymphadenopathy, no carotid bruit. Cardiac: irregular -irregular rhythm rate controlled, no murmur, +S1/S2, 3+ BLE edema, PMI non-displaced Pulmonary: RLL wheezes, no rales or rhonchi, equal chest expansion, unlabored breathing Abdomen: soft, nontender, BS noted, no guarding, non distended. No o rganomegaly, no pulsatile masses, Skin: warm and dry, no visible lesions. Feels warm, clammy, no rashes, no lesions, no erythema MSK: ROM not assessed. no joint swelling noted, gait not assessed while in bed. Non tender calf or clubbing, 2+ pedal edema Neuro: A&O, moves all extremities, no focal deficits, sensation intact Psych: Appropriate mood and behavior, normal speech. - Assessment and Plan (1) Respiratory failure Current Visit: Yes Status: Acute Assessment and Plan: -Likely multifactorial due to new-onset diastolic dysfunction along with the multifocal pneumonia -Patient's chest CT showed evidence for multifocal pneumonia along with bilateral pleural effusion and bilateral lung consolidation. -Recent echocardiogram showed LVEF 55% with indeterminate diastolic dysfunction -Currently on 2 L of oxygen satting at 99%, Continues to be on day 5 of antibiotics., 40 IV Lasix TID -Patient to seems to be clinically improving than the day he was admitted. However, still not ready to be discharged home. Plan: -De-escalated his Lasix requirements from a 40 IV TID to BID. (2) Pneumonia Current Visit: Yes Status: Suspected Assessment and Plan: -Patient's most recent chest CT showed evidence for multifocal pneumonia along with bilateral pleural effusion and bilateral lung consolidation. - On physical exam, patient has wheezing on the RLL , however his O2 requi rement has come down to his baseline -Patient is going to complete day 5 of Rocephin and azithromycin today , on 2L NC satting at 98%. (3) Diastolic heart failure Current Visit: Yes Status: Acute Assessment and Plan: -likely due to HTN and uncontrolled obstructive sleep apnea - Endorses that he was feeling short of breath along with pedal edema for the past 6 days. -Most recent chest x-ray had concerns for some pulmonary vascular congestion. - BNP: 88, TSH: 0.526, Free T4: 0.97 - Recent echocardiogram showed an LVEF of 65% with indeterminate diastolic dysfunction. - Was given 80 IV Lasix at the [facility] -Currently on 40 IV Lasix TID, continued his digoxin as patient had episodes of mild bradycardia PLAN: - Patient appears to be better than yesterday. His oxygen requirement has gone down from 3.5 L yesterday to 2 L which is his baseline at home. His breath sounds are improving with every progressing day but he still has significant amount of pedal edema. - De-escalated his Lasix from 40 IV TID to BID . - Strict Is/Os, cardiac diet. -Monitor him clinically in the a.m. -Follow-up with cardiology as an outpatient on discharge (4) Diabetes Current Visit: No Status: Chronic Assessment and Plan: -Patient with a history of diabetes -Currently on the low-dose sliding scale insulin. Patient's nighttime glucose is a little higher around 206 as of last POC glucose (5) Hypertension Current Visit: No Status: Chronic Assessment and Plan: - Patient has a history of hypertension. -He is on lisinopril 40 mg once a day. During his hospital stay, but we are holding his Norvasc because of his pedal edema. -On day 2 of Coreg to help with his diastolic dysfunction and BP control - We will adjust his antihypertensives as needed. (6) A-fib Current Visit: No Status: Chronic Assessment and Plan: H/o afib on coumadin. Currently rate controlled with HR:72 No daytime bradycardia seen. Currently on lower dose of cardizem. Digoxin was stopped due to bradycardia , day 3 of 3.125 mg Coreg. continuing coumadin. Goal INR 2.0-3.0. Recommend treatment of DONTA as outpatient. - (7) DVT prophylaxis Current Visit: No Status: Acute Assessment and Plan: Subcutaneous heparin - Time Spent with Patient Total time spent is greater than 50% in coordination of care (as documented) at patient's floor/unit and/or counseling patient: Internal Medicine: Result - Labs CBC & Chem 7: 02/18/19 05:57 02/18/19 05:57 Labs: Short CBC 02/18/19 Range/Units 05:57 WBC 8.7 (4.3-11.1) K/mcL Hgb 11.2 L (12.9-16.9) g/dL Hct 35.7 L (37.5-50.1) % Plt Count 299 (140-400) K/mcL Neutrophils # 6.0 (1.6-8.9) K/mcL BMP 02/18/19 05:57 Sodium 140 Potassium 4.0 Chloride 100 Carbon Dioxide 33 H BUN 26 H Creatinine 0.88 Glucose 209 H Calcium 9.1 - ABG Interpretation ABG results: PT/INR, D-dimer PT 19.0 Seconds (9.4-12.1) H 02/18/19 05:57 <Suresh Oneill - Last Filed: 02/18/19 16:54> (1) Diabetes Qualifiers: Diabetes mellitus type: type 2 Diabetes mellitus longterm insulin use: with rural carrier use Diabetes mellitus complication status: without complication Qualified Code(s): E11.9 - Type 2 diabetes mellitus without complications; Z79.4 - group home (current) use of insulin (2) Hypertension Qualifiers: Hypertension type: essential hypertension Qualified Code(s): I10 - Essential (primary) hypertension (3) A-fib Qualifiers: Atrial fibrillation type: chronic Qualified Code(s): I48.2 - Chronic atrial fibrillation (5) Pneumonia Qualifiers: Pneumonia type: due to Pneumococcus Laterality: bilateral Lung location: lower lobe of lung Qualified Code(s): J13 - Pneumonia due to Streptococcus pneumoniae (6) Diastolic heart failure Qualifiers: Heart failure chronicity: acute on chronic Qualified Code(s): I50.33 - Acute on chronic diastolic (congestive) heart failure (7) Respiratory failure Qualifiers: Chronicity: acute on chronic Respiratory failure complication: hypoxia Qualified Code(s): J96.21 - Acute and chronic respiratory failure with hypoxia <Esau Gacria - Last Filed: 02/18/19 20:46> (1) Respiratory failure Qualifiers: Chronicity: acute on chronic Respiratory failure complication: hypoxia Qualified Code(s): J96.21 - Acute and chronic respiratory failure with hypoxia (2) Pneumonia Qualifiers: Pneumonia type: due to Pneumococcus Laterality: bilateral Lung location: lower lobe of lung Qualified Code(s): J13 - Pneumonia due to Streptococcus pneumoniae (3) Diastolic heart failure Qualifiers: Heart failure chronicity: acute on chronic Qualified Code(s): I50.33 - Acute on chronic diastolic (congestive) heart failure (4) Diabetes Qualifiers: Diabetes mellitus type: type 2 Diabetes mellitus rural carrier insulin use: with rural carrier use Diabetes mellitus complication status: without complication Qualified Code(s): E11.9 - Type 2 diabetes mellitus without complications; Z79.4 - group home (current) use of insulin (5) Hypertension Qualifiers: Hypertension type: essential hypertension Qualified Code(s): I10 - Essential (primary) hypertension (6) A-fib Qualifiers: Atrial fibrillation type: chronic Qualified Code(s): I48.2 - Chronic atrial fibrillation
[2019-02-18] MEDS: Azithromycin 250 MG TABLET PO SCH (14:51)
[2019-02-18] MEDS ORDERED: *HR* Warfarin 10 MG TABLET PO ONE (19:56)
[2019-02-19] MEDS: Insulin LISPRO 300 UNITS/3 ML VIAL SQ SCH ×3 (08:08→17:19)
[2019-02-19] MEDS: Lisinopril 20 MG TABLET PO SCH (08:09)
[2019-02-19] MEDS: Diltiazem CD (24hr) 240 MG CAPSULE PO SCH (08:09)
[2019-02-19 08:24] LABS: Basophils % 0.5 %; Eosinophils # 0.3 K/mcL (0.0-0.6); Eosinophils % 3.9 %; Hematocrit 35.5 % (37.5-50.1); Immature Granulocytes % 1.1 % (0-4); Lymphocytes # 1.3 K/mcL (0.6-4.6); Lymphocytes % 16.5 %; Mean Corpuscular Hemoglobin 28.5 pg (28.0-33.3); Mean Platelet Volume 10.8 fL (9.4-12.4); Monocytes # 0.8 K/mcL (0.0-1.3); Neutrophils # 5.4 K/mcL (1.6-8.9); Platelet Count 291 K/mcL (140-400); Red Blood Count 3.86 M/mcL (4.19-5.50); Red Cell Distribution Width 13.9 % (11.5-14.5)
[2019-02-19 08:31] LABS: INR 1.8; Prothrombin Time 19.9 Seconds (9.4-12.1)
[2019-02-19 08:42] LABS: BUN/Creatinine Ratio 31 (6-26); Blood Urea Nitrogen 25 mg/dL (8-23); Calcium 9.1 mg/dL (8.6-10.3); Carbon Dioxide 32 mEq/L (23-29); Chloride 101 mEq/L (98-107); Glucose 211 mg/dL (70-105); Osmolality,Calculated 297 (280-300); Sodium 138 mEq/L (136-145); eGFR For Non-African Americans > 60 (> 60)
[2019-02-19] MEDS: Furosemide 40 MG/4 ML VIAL IVP SCH ×3 (09:21→17:17)
[2019-02-19 11:29] VITALS: BP 171/92
--- NOTE | 2019-02-19 14:55 | Discharge Summary ---
<JoseEsau - Last Filed: 02/19/19 16:32> - NOTES TO OUTPATIENT PROVIDER Notes to Outpatient Provider: -Patient is being prescribed Lasix 40 mg twice a day for a new onset diastolic dysfunction. -Patient's digoxin was discontinued because he was having bradycardic episodes while in the hospital stay. -Patient needs a BMP in 7 days from to monitor his kidney function. -Patient needs to see a hi ranger operator for his new onset diastolic dysfunction. Orders not resulted at time of discharge: Pending orders 02/20/19 04:00 INR/PT [Prothrombin Time INR] [COAG] AM 0400 02/21/19 04:00 INR/PT [Prothrombin Time INR] [COAG] AM 040 Date of Encounter: 02/19/19 Time of Encounter: 09:00 - Discharge Diagnosis (1) Pneumonia Priority: Secondary Status: Suspected Qualifiers: Pneumonia type: due to Pneumococcus Laterality: bilateral Lung location: lower lobe of lung Qualified Code(s): J13 - Pneumonia due to Streptococcus pneumoniae (2) Diastolic heart failure Priority: Primary Status: Acute Qualifiers: Heart failure chronicity: acute on chronic Qualified Code(s): I50.33 - Acute on chronic diastolic (congestive) heart failure (3) Diabetes Priority: Secondary Status: Chronic Qualifiers: Diabetes mellitus type: type 2 Diabetes mellitus terminal manager insulin use: with shelter use Diabetes mellitus complication status: without complication Qualified Code(s): E11.9 - Type 2 diabetes mellitus without complications; Z79.4 - shelter (current) use of insulin (4) Hypertension Priority: Secondary Status: Chronic Qualifiers: Hypertension type: essential hypertension Qualified Code(s): I10 - Ess ential (primary) hypertension (5) A-fib Priority: Secondary Status: Chronic Qualifiers: Atrial fibrillation type: chronic Qualified Code(s): I48.2 - Chronic atrial fibrillation (6) DVT prophylaxis Priority: Secondary Status: Acute (7) Respiratory failure Priority: Secondary Status: Acute Qualifiers: Chronicity: acute on chronic Respiratory failure complication: hypoxia Qualified Code(s): J96.21 - Acute and chronic respiratory failure with hypoxia Hospital course: Mr. Goodwin is a 68 year old male past medical history of atrial fibrillation, diabetes, hypertension, history of CVA who was a transfer from [facility] for shortness of breath. Patient endorsed that he was having exertional shortness of breath associated with lower extremity edema for the past 6 days. He denied any exacerbating or remitting factors. Patient also reported dry cough with non-compliance on CPAP at night. Patient was given 80 IV Lasix at the hospital with good urine output, chest x-ray showed pulmonary findings consistent with congestive heart failure. Patient had echo which showed indeterminate diastolic function with LVEF 65%. During the course of hospital stay, patient was put on 40 IV Lasix twice a day, which had to be increased to 3 times a day. Patient continued to be on coumadin for his A. fib , dose of Cardizem was lowered and was kept on digoxin for the first 2 days but had to be discontinued because patient was having bradycardic episodes. Patient also had CT findings for multifocal pneumonia along with bilateral pleural effusion and lung consolidation. During the course of hospital stay patient completed his 5 day course of Rocephin and azithromycin. During day 6 of hospital stay patient had a walk test on him and he was not requiring more than his baseline oxygen to keep his oxygen saturation > 88%. Patient was found to be hemodynamically stable to be discharged on day 7 of his hospital stay. He is being discharged on 40 mg Lasix twice a day. Has been been recommended to follow-up with cardiology as an outpatient as the onset diastolic dysfunction.. - Time Spent with Patient Total time spent providing and/or coordinating discharge services: - Discharge Medications Prescriptions: New RX: Carvedilol [Coreg] 3.125 mg PO BIDWM 30 Days #60 tablet RX: Furosemide [Lasix] 40 mg PO BIDDIURETIC 30 Days #60 vial Continue RX: Metformin HCl [Glucophage] 1,000 mg PO BID RX: Warfarin [Coumadin] 10 mg PO DAILY RX: Diltiazem HCl [Cardizem LA] 360 mg PO QAM RX: Acetaminophen [Tylenol] 1,000 mg PO DAILY PRN PRN Reason: Pain RX: Atorvastatin [Lipitor] 40 mg PO QPM RX: Benazepril HCl [Lotensin] 40 mg PO DAILY RX: glipiZIDE [Glucotrol] 5 mg PO BID RX: Tamsulosin HCl [Flomax] 0.4 mg PO DAILY RX: DiphenhydraMINE [Benadryl] 50 mg PO DAILY PRN PRN Reason: Allergy Symptoms RX: Insulin DETEMIR [Levemir] 80 unit SQ DAILY Discontinued RX: amLODIPine [Norvasc] 5 mg PO DAILY #30 tablet Digoxin [Lanoxin] 0.25 mg PO DAILY Home Medications: RX: Diltiazem HCl [Cardizem LA] 360 mg PO QAM 08/18/16 [History] RX: Metformin HCl [Glucophage] 1,000 mg PO BID 08/18/16 [History] RX: Warfarin [Coumadin] 10 mg PO DAILY 08/18/16 [History] RX: Insulin DETEMIR [Levemir] 80 unit SQ DAILY 03/23/17 [History] RX: Acetaminophen [Tylenol] 1,000 mg PO DAILY PRN 02/14/19 [History] RX: Atorvastatin [Lipitor] 40 mg PO QPM 02/14/19 [History] RX: Benazepril HCl [Lotensin] 40 mg PO DAILY 02/14/19 [History] RX: DiphenhydraMINE [Benadryl] 50 mg PO DAILY PRN 02/14/19 [History] RX: Tamsulosin HCl [Flomax] 0.4 mg PO DAILY 02/14/19 [History] RX: glipiZIDE [Glucotrol] 5 mg PO BID 02/14/19 [History] RX: Carvedilol [Coreg] 3.125 mg PO BIDWM 30 Days #60 tablet 02/19/19 [Rx] RX: Furosemide [Lasix] 40 mg PO BIDDIURETIC 30 Days #60 vial 02/19/19 [Rx] Allergies/Adverse Reactions: Allergy/AdvReac Type Severity Reaction Status Date / Time Penicillins [PCN] AdvReac Intermediate See Verified 02/14/19 14:40 Comments cigarette smoke AdvReac Difficulty Verified 03/23/17 21:18 Breathing Date of admission: 02/14/19 16:35 Primary care physician: PCP NONE Consults: 02/13/19 23:03 Consult to Cardiac Rehabilitation-Phase1 [CONS] Routine Comment: Reason for Consult: heart failure Call Completed: Yes Consult to Cardiology [CONS] Routine Comment: Consulting Provider: Cardiology [place] Reason for Consult: Heart Failure Call Completed: No Consult to Nurse Navigator [CONS] Routine Comment: 02/19/19 10:26 Consult to Occupational Therapy [CONS] Stat Comment: Evaluate, develop and implement POC Reason for Consult: discharge needs Does patient have active BEDREST order?: No Is patient medically & hemodynamically stable?: Yes Patient assessed for mobility or mobilized this visit?: No Consult to Physical Therapy [CONS] Stat Comment: Evaluate, develop and implement POC Reason for Consult: discharge needs Does patient have active BEDREST order?: No Is patient medically & hemodynamically stable?: Yes Patient assessed for mobility or mobilized this visit?: No - Constitutional Vitals: Temp Pulse Resp BP Pulse Ox 97.9 F 64 19 171/92 95 02/19/19 11:27 02/19/19 11:27 02/19/19 07:17 02/19/19 11:27 02/19/19 11:27 Exam: Gen.: Vitals noted. mild distress. Alert, awake and oriented * [address], [address], and time, well developed, sitting on the chair. Pleasant. HEENT: oropharynx clear, Normocephalic, atraumatic, MMM Neck: supple, no JVD, no lymphadenopathy, no carotid bruit. Cardiac: irregular -irregular rhythm rate controlled, no murmur, +S1/S2, 1+ BLE edema, PMI non-displaced Pulmonary: no rales or rhonchi, equal chest expansion, unlabored breathing Abdomen: soft, non-tender, BS noted, no guarding, non distended. No organomegaly, no pulsatile masses, Skin: warm and dry, no visible lesions. Feels warm, clammy, no rashes, no lesions, no erythema MSK: ROM not assessed. no joint swelling noted, gait not assessed while in bed. Non tender calf or clubbing, 2+ pedal edema Neuro: A&O, moves all extremities, no focal deficits, sensation intact Psych: Appropriate mood and behavior, normal speech. - Patient Status Disposition: Home Health Service Condition: Good Functional capacity at discharge: independent ambulation Overall status at discharge: patient is progressing back to baseline - Ambulatory Orders Ambulatory Orders: Basic Metabolic Panel [CHEM] Time Frame: 1 Week, Facility: [facility], Location: [facility] - Discharge Instructions Follow Up With: NONE,PCP [Primary Care Provider] - Additional Instructions: - Continue taking your LASIX 40 mg twice a day. -Refrain from adding salt in your diet -Restrict your water intake to less than 1.5 L a day -Follow Up with cardiology as an outpatient for new diagnosed CHF -Get the labs done within 1 week to monitor your kidney function -Follow up with primary care doctor as an outpatient in 2 weeks from now. -Return to the ED immediately if having chest pain, shortness of breath, increased leg swelling, or increased requirement for home oxygen -Continue to use CPAP at night on a regular basis - Diet and Activity Activity: increase activity as tolerated Diet: low salt diet <Elton Perez - Last Filed: 02/19/19 16:41> Orders not resulted at time of discharge: Pending orders 02/20/19 04:00 INR/PT [Prothrombin Time INR] [COAG] AM 0400 02/21/19 04:00 INR/PT [Prothrombin Time INR] [COAG] AM 0400 Date of Encounter: 02/19/19 - Discharge Diagnosis (1) Diabetes Status: Chronic Qualifiers: Diabetes mellitus type: type 2 Diabetes mellitus terminal manager insulin use: with terminal manager use Diabetes mellitus complication status: without complication Qualified Code(s): E11.9 - Type 2 diabetes mellitus without complications; Z79.4 - shelter (current) use of insulin (2) Hypertension Status: Chronic Qualifiers: Hypertension type: essential hypertension Qualified Code(s): I10 - Essential (primary) hypertension (3) A-fib Status: Chronic Qualifiers: Atrial fibrillation type: chronic Qualified Code(s): I48.2 - Chronic atrial fibrillation (4) DVT prophylaxis Status: Acute (5) Pneumonia Status: Suspected Qualifiers: Pneumonia type: due to Pneumococcus Laterality: bilateral Lung location: lower lobe of lung Qualified Code(s): J13 - Pneumonia due to Streptococcus pneumoniae (6) Diastolic heart failure Status: Acute Qualifiers: Heart failure chronicity: acute on chronic Qualified Code(s): I50.33 - Acute on chronic diastolic (congestive) heart failure (7) Respiratory failure Status: Acute Qualifiers: Chronicity: acute on chronic Respiratory failure complication: hypoxia Qualified Code(s): J96.21 - Acute and chronic respiratory failure with hypoxia Hospital course: Mr. Goodwin is a 68 year old male - Time Spent with Patient Total time spent providing and/or coordinating discharge services: Time spent: Greater than 30 minutes Date of admission: 02/14/19 16:35 Primary care physician: PCP NONE Consults: 02/13/19 23:03 Consult to Cardiac Rehabilitation-Phase1 [CONS] Routine Comment: Reason for Consult: heart failure Call Completed: Yes Consult to Cardiology [CONS] Routine Comment: Consulting Provider: Merissa Bird Reason for Consult: Heart Failure Call Completed: No Consult to Nurse Navigator [CONS] Routine Comment: 02/19/19 10:26 Consult to Occupational Therapy [CONS] Stat Comment: Evaluate, develop and implement POC Reason for Consult: discharge needs Does patient have active BEDREST order?: No Is patient medically & hemodynamically stable?: Yes Patient assessed for mobility or mobilized this visit?: No Consult to Physical Therapy [CONS] Stat Comment: Evaluate, develop and implement POC Reason for Consult: discharge needs Does patient have active BEDREST order?: No Is patient medically & hemodynamically stable?: Yes Patient assessed for mobility or mobilized this visit?: No - Constitutional Vitals: Temp Pulse Resp BP Pulse Ox 97.9 F 64 19 171/92 95 02/19/19 11:27 02/19/19 11:27 02/19/19 07:17 02/19/19 11:27 02/19/19 11:27 - Attending Attestation Patient was seen and examined. I agree with the discharge document as written by the resident physician. Admitted with signs of volume overload. Was noted to be in new onset diastolic HF. Cardiology saw him and they will follow up outpatient. Diuresed aggresively and was back to his previous chronic O2 needs. He still would benefit from further diuresis but I believe this can be achieved outside of here as well on oral lasix. Discharged on oral lasix 40 mg BID and BMP in 1 week, GEN: NAD CVS: RRR. S1, S2, No m/r/g RESP: CTAB ABD: Soft, NT, ND, +BS EXT: 2+ edema. 2+ DP. No rashes NEURO: Nonfocal
--- NOTE | 2019-02-19 15:08 | Physician Discharge Referral ---
Home Health/Hosp Referral Info Transfer to: Home Health - Diagnosis (1) Respiratory failure Priority: Secondary Status: Acute (2) Pneumonia Priority: Secondary Status: Suspected (3) Diastolic heart failure Priority: Primary Status: Acute (4) Diabetes Priority: Secondary Status: Chronic (5) Hypertension Priority: Secondary Status: Chronic (6) A-fib Priority: Secondary Status: Chronic (7) DVT prophylaxis Priority: Secondary Status: Acute - Respiratory Orders Oxygen / L per min Smoking Cessation: Smoking cessation has been advised. For more information, call the [place] [employer] Quit Line at 7-069-JHKB-NOW. - Diet/Nutrition Diet/Nutrition Orders: Cardiac - Activity Activity Orders: Ambulate Activity: List: Ambulate as tolerated - Services Needed Following services are medically necessary services: Physical Therapy, Occupational Therapy - Transfer Medications Prescriptions: Carvedilol [Coreg] 3.125 mg PO BIDWM 30 Days #60 tablet Furosemide [Lasix] 40 mg PO BIDDIURETIC 30 Days #60 vial Home Medications: Diltiazem HCl [Cardizem LA] 360 mg PO QAM 08/18/16 [History] Metformin HCl [Glucophage] 1,000 mg PO BID 08/18/16 [History] Warfarin [Coumadin] 10 mg PO DAILY 08/18/16 [History] Insulin DETEMIR [Levemir] 80 unit SQ DAILY 03/23/17 [History] Acetaminophen [Tylenol] 1,000 mg PO DAILY PRN 02/14/19 [History] Atorvastatin [Lipitor] 40 mg PO QPM 02/14/19 [History] Benazepril HCl [Lotensin] 40 mg PO DAILY 02/14/19 [History] DiphenhydraMINE [Benadryl] 50 mg PO DAILY PRN 02/14/19 [History] Tamsulosin HCl [Flomax] 0.4 mg PO DAILY 02/14/19 [History] glipiZIDE [Glucotrol] 5 mg PO BID 02/14/19 [History] Carvedilol [Coreg] 3.125 mg PO BIDWM 30 Days #60 tablet 02/19/19 [Rx] Furosemide [Lasix] 40 mg PO BIDDIURETIC 30 Days #60 vial 02/19/19 [Rx] Allergies/Adverse Reactions: Allergy/AdvReac Type Severity Reaction Status Date / Time Penicillins [PCN] AdvReac Intermediate See Verified 02/14/19 14:40 Comments cigarette smoke AdvReac Difficulty Verified 03/23/17 21:18 Breathing Certification: Further, I certify that my clinical findings support that this patient is homebound (i.e. absences from home require considerable and taxing effort and are for medical reasons or [employer] [facility] or infrequently or short duration when for other reasons) because: Homebound Reason: Severity of cardiac or pulmonary status limits activity tolerance Attestation: My signature below is to certify that this patient is under my care and that I, or nurse practitioner, or a physician's university administrative assistant working with me, has a [id number] encounter with this patient.
[2019-02-19] MEDS ORDERED: *HR* Warfarin 5 MG TABLET PO ONE (18:00)
== END 2019-02-19 18:40 | disposition home health service (06) | DRG 291 ==
LOC: 2NENU → SUATTDRO 20:03
PROVIDERS: ADMIT Internal Medicine; ATTEND Internal Medicine